=== PATIENT | female | born 1940 | race Caucasian/White ===

== ENCOUNTER 2018-08-10 11:20 | Emergency (ER) | payer MEDICARE ==
[~2018-08-10] VITALS: Ht 154.9 cm; Wt 81.6 kg
[~2018-08-10 11:20] MED LIST: ALBU2.5V8 INH; ALLO100T PO; ALPR0.254 PO; AMLO5TAB10 PO; ARMO150T4 PO; ASPI-482 PO; ASPI325T11 PO; AZIT250T6 PO; CLOP75TA PO; ERYT250T16 PO; FERR325T14 PO; FURO-68 PO; INSU100C4 SQ; INSU100I27 SQ; INSU100I30 SQ; INSU100V13 SQ; INSU100V31 SQ; INSU300I SQ; LEVO137T3 PO; LOSA25TA PO; METF500T16 PO; METO-269 PO; PRED-220 PO; SERT50TA PO; SIMV40TA3 PO; TOPI50TA38 PO; TRAM50TA PO
--- NOTE | 2018-08-10 13:29 | RAD ---
CT Abdomen and Pelvis without contrast History: Right flank pain for one week Technique: Noncontrast CT imaging was performed of the abdomen and pelvis. Multiplanar images are reviewed. Exposure: One or more of the following individualized dose reduction techniques were utilized for this examination: 1. Automated exposure control 2. Adjustment of the mA and/or kV according to patient size 3. Use of iterative reconstruction technique. Comparison: CT abdomen exam December 31, 2003 Findings: There are several small micronodules of the visualized left lower lobe near the lung base. There is no pleural fluid. Evaluation of the abdominal visceral organs is limited without intravenous contrast. There are hepatic and splenic granulomas. Otherwise no obvious focal abnormality is identified of the liver or spleen. Pancreas is atrophic. Gallbladder is present without obvious intraluminal abnormality by CT although difficult to exclude mild wall thickening on this exam such as posteriorly. There is no urolithiasis or hydronephrosis. There is incidental retroaortic left renal vein. There is no adrenal nodularity. Accurate evaluation of bowel is limited without oral contrast. Appendix is not clearly identified if still present, no significant pericecal inflammatory type change. There is mild sigmoid diverticulosis not associated with significant inflammatory type change. There is multilevel facet degenerative change, grade 1 anterior spondylolisthesis at L4-5. Impression: 1. There is no urolithiasis or hydronephrosis. Appendix is not clearly identified if still present, no significant pericecal inflammatory type change. There is mild colonic diverticulosis without convincing evidence of diverticulitis. It is difficult to entirely exclude mild gallbladder wall thickening more posteriorly on this exam although no obvious intraluminal abnormality of the gallbladder. 2. There are multiple micronodules of the visualized left lower lobe at the lung base more likely on a postinfectious or postinflammatory basis. Lungs are not fully evaluated. Electronically signed by: Get Moy MD (08/10/2018 1:26 PM) [facility]
[2018-08-10 13:33] LABS: BASO % 0 % (0-3); EOS # 0.3 x10^3/uL (0.0-0.7); EOS % 5 % (0-3); HEMATOCRIT 30.6 % (36.0-47.0); HEMOGLOBIN 9.5 g/dL (12.0-15.5); LYMPH # 1.7 x10^3/uL (1.0-4.8); LYMPH % 25 % (24-48); MEAN CORPUSCULAR HEMOGLOBIN 26 pg (25-35); MEAN CORPUSCULAR HGB CONC 31 g/dL (31-37); MEAN CORPUSCULAR VOLUME 82 fL (79-100); MONO # 0.6 x10^3/uL (0.0-1.1); MONO % 9 % (0-9); NEUT # 4.2 x10^3uL (1.8-7.7); NEUT % 61 % (31-73); PLATELET COUNT 174 x10^3/uL (140-400); RED BLOOD COUNT 3.74 x10^6/uL (3.50-5.40); WHITE BLOOD COUNT 6.9 x10^3/uL (4.0-11.0)
[2018-08-10 13:42] LABS: CALCIUM 8.5 mg/dL (8.5-10.1); CREATININE 1.7 mg/dL (0.6-1.0); GFR 29.1; POTASSIUM 4.8 mmol/L (3.5-5.1)
[2018-08-10 13:47] LABS: ALBUMIN/GLOBULIN RATIO 0.9 (1.0-1.7); TOTAL BILIRUBIN 0.2 mg/dL (0.2-1.0); TOTAL PROTEIN 6.3 g/dL (6.4-8.2)
--- NOTE | 2018-08-10 14:15 | PHYS DOC ---
Past Medical History Past Medical History: Anxiety, COPD, Diabetes-Type II, High Cholesterol, Hypertension, Hypothyroid, ME, Other Additional Past Medical Histor: gout, cataracts, stage 3 kidney disease, skin cancer Past Surgical History: Appendectomy, Hysterectomy, Other Additional Past Surgical Histo: cataracts, cardiac cath with stents Alcohol Use: None Drug Use: None Adult General Chief Complaint Chief Complaint: FLANK PAIN HPI HPI Patient is a 78 year old female presented to ER today for evaluation of right side lower back pain, right flank pain started about 7 days ago. Pain is worsened with any kind of flexion or extension of her back or walking. She denies any fever, no nausea vomiting. Patient denies any urinary symptom. Patient denies any chest pain, no trouble breathing. Patient denies any bowel or bladder incontinence. Review of Systems Review of Systems Constitutional: Denies fever or chills [] Eyes: Denies change in visual acuity, redness, or eye pain [] HENT: Denies nasal congestion or sore throat [] Respiratory: Denies cough or shortness of breath [] Cardiovascular: No additional information not addressed in HPI [] GI: POSITIVE FOR abdominal pain, NO nausea, vomiting, bloody stools or diarrhea [] : Denies dysuria or hematuria [] Musculoskeletal: Positive for back pain NO joint pain [] Integument: Denies rash or skin lesions [] Neurologic: Denies headache, focal weakness or sensory changes [] Endocrine: Denies polyuria or polydipsia [] All other systems were reviewed and found to be within normal limits, except as documented in this note. Current Medications Current Medications Current Medications Medications (Trade) Dose Ordered Sig/Mindy Start Time Stop Time Status Last Admin Dose Admin Fentanyl Citrate (Fentanyl 2ml Vial) 50 mcg 1X ONCE 08/10/18 15:30 08/10/18 15:31 DC 08/10/18 15:35 50 MCG Allergies Allergies Allergies Coded Allergies Type Severity Reaction Last Updated Verified Penicillins Allergy Intermediate hives 08/07/18 Yes Sulfa (Sulfonamide Antibiotics) Allergy Intermediate 08/07/18 Yes codeine Allergy Intermediate 08/07/18 Yes morphine Allergy Intermediate 08/07/18 Yes Physical Exam Physical Exam Constitutional: Well developed, well nourished, no acute distress, non-toxic appearance. [] HENT: Normocephalic, atraumatic, bilateral external ears normal, oropharynx moist, no oral exudates, nose normal. [] Eyes: PERRLA, EOMI, conjunctiva normal, no discharge. [] Neck: Normal range of motion, no tenderness, supple, no stridor. [] Cardiovascular:Heart rate regular rhythm, no murmur [] Lungs & Thorax: Bilateral breath sounds clear to auscultation [] Abdomen: Bowel sounds normal, soft, no tenderness, no masses, no pulsatile masses. [] Skin: Warm, dry, no erythema, no rash. [] Back: No tenderness, no CVA tenderness. [] Extremities: No tenderness, no cyanosis, no clubbing, ROM intact, no edema. [] Neurologic: Alert and oriented X 3, normal motor function, normal sensory function, no focal deficits noted. [] Psychologic: Affect normal, judgement normal, mood normal. [] Current Patient Data Vital Signs Vital Signs Date Time Temp Pulse Resp B/P (MAP) Pulse Ox O2 Delivery O2 Flow Rate FiO2 08/10/18 16:29 61 16 162/70 (100) 99 Room Air 08/10/18 11:26 98.3 98.3 Lab Values Laboratory Tests Test 08/10/18 13:25 08/10/18 15:20 White Blood Count 6.9 x10^3/uL (4.0-11.0) Red Blood Count 3.74 x10^6/uL (3.50-5.40) Hemoglobin 9.5 g/dL (12.0-15.5) L Hematocrit 30.6 % (36.0-47.0) L Mean Corpuscular Volume 82 fL (79-100) Mean Corpuscular Hemoglobin 26 pg (25-35) Mean Corpuscular Hemoglobin Concent 31 g/dL (31-37) Red Cell Distribution Width 16.0 % (11.5-14.5) H Platelet Count 174 x10^3/uL (140-400) Neutrophils (%) (Auto) 61 % (31-73) Lymphocytes (%) (Auto) 25 % (24-48) Monocytes (%) (Auto) 9 % (0-9) Eosinophils (%) (Auto) 5 % (0-3) H Basophils (%) (Auto) 0 % (0-3) Neutrophils # (Auto) 4.2 x10^3uL (1.8-7.7) Lymphocytes # (Auto) 1.7 x10^3/uL (1.0-4.8) Monocytes # (Auto) 0.6 x10^3/uL (0.0-1.1) Eosinophils # (Auto) 0.3 x10^3/uL (0.0-0.7) Basophils # (Auto) 0.0 x10^3/uL (0.0-0.2) Sodium Level 142 mmol/L (136-145) Potassium Level 4.8 mmol/L (3.5-5.1) Chloride Level 110 mmol/L (98-107) H Carbon Dioxide Level 23 mmol/L (21-32) Anion Gap 9 (6-14) Blood Urea Nitrogen 41 mg/dL (7-20) H Creatinine 1.7 mg/dL (0.6-1.0) H Estimated GFR (Cockcroft-Gault) 29.1 BUN/Creatinine Ratio 24 (6-20) H Glucose Level 133 mg/dL (70-99) H Calcium Level 8.5 mg/dL (8.5-10.1) Total Bilirubin 0.2 mg/dL (0.2-1.0) Aspartate Amino Transferase (AST) 17 U/L (15-37) Alanine Aminotransferase (ALT) 16 U/L (14-59) Alkaline Phosphatase 91 U/L (46-116) Total Protein 6.3 g/dL (6.4-8.2) L Albumin 3.0 g/dL (3.4-5.0) L Albumin/Globulin Ratio 0.9 (1.0-1.7) L Lipase 47 U/L (73-393) L Urine Collection Type Unknown Urine Color Yellow Urine Clarity Clear Urine pH 6.5 Urine Specific [place] 1.015 Urine Protein Negative mg/dL (NEG-TRACE) Urine Glucose (UA) Negative mg/dL (NEG) Urine Ketones (Stick) Negative mg/dL (NEG) Urine Blood Negative (NEG) Urine Nitrite Negative (NEG) Urine Bilirubin Negative (NEG) Urine Urobilinogen Dipstick 0.2 mg/dL (0.2 mg/dL) Urine Leukocyte Esterase Negative (NEG) Urine RBC Occ /HPF (0-2) Urine WBC Occ /HPF (0-4) Urine Squamous Epithelial Cells Few /LPF Urine Bacteria 0 /HPF (0-FEW) Laboratory Tests 08/10/18 13:25 Laboratory Tests 08/10/18 13:25 EKG EKG [] Radiology/Procedures Radiology/Procedures [][facility] [address] [place] [address] IMAGING REPORT Signed PATIENT: DIA HAILE ACCOUNT: [id number] : 1940 LOCATION: ER AGE: 78 SEX: F EXAM STATUS: REG ER ORD. PHYSICIAN: WILNER CRAIG DO REASON: right flank pain for a week PROCEDURE: CT ABDOMEN PELVIS WO CONTRAST CT Abdomen and Pelvis without contrast History: Right flank pain for one week Technique: Noncontrast CT imaging was performed of the abdomen and pelvis. Multiplanar images are reviewed. Exposure: One or more of the following individualized dose reduction techniques were utilized for this examination: 1. Automated exposure control 2. Adjustment of the mA and/or kV according to patient size 3. Use of iterative reconstruction technique. Comparison: CT abdomen exam December 31, 2003 Findings: There are several small micronodules of the visualized left lower lobe near the lung base. There is no pleural fluid. Evaluation of the abdominal visceral organs is limited without intravenous contrast. There are hepatic and splenic granulomas. Otherwise no obvious focal abnormality is identified of the liver or spleen. Pancreas is atrophic. Gallbladder is present without obvious intraluminal abnormality by CT although difficult to exclude mild wall thickening on this exam such as posteriorly. There is no urolithiasis or hydronephrosis. There is incidental retroaortic left renal vein. There is no adrenal nodularity. Accurate evaluation of bowel is limited without oral contrast. Appendix is not clearly identified if still present, no significant pericecal inflammatory type change. There is mild sigmoid diverticulosis not associated with significant inflammatory type change. There is multilevel facet degenerative change, grade 1 anterior spondylolisthesis at L4-5. Impression: 1. There is no urolithiasis or hydronephrosis. Appendix is not clearly identified if still present, no significant pericecal inflammatory type change. There is mild colonic diverticulosis without convincing evidence of diverticulitis. It is difficult to entirely exclude mild gallbladder wall thickening more posteriorly on this exam although no obvious intraluminal abnormality of the gallbladder. 2. There are multiple micronodules of the visualized left lower lobe at the lung base more likely on a postinfectious or postinflammatory basis. Lungs are not fully evaluated. Electronically signed by: Toya Anaya MD (08/10/2018 1:26 PM) [facility] DICTATED and SIGNED BY: TOYA ANAYA MD DATE: 08/10/18 1326 [facility] [address] [place] [address] IMAGING REPORT Signed PATIENT: DIA HAILE ACCOUNT: [id number] : 1940 LOCATION: ER AGE: 78 SEX: F EXAM STATUS: REG ER ORD. PHYSICIAN: WILNER CRAIG DO REASON: right upper quadrant abdominal pain PROCEDURE: ABDOMEN LTD ABDOMEN LTD History: Right upper quadrant pain Comparison: CT exam the same day Findings: Multiple sonographic images of the abdomen are submitted. There is no abnormality of the visualized pancreas. Gallbladder is present without intraluminal abnormality, wall thickening, pericholecystic fluid. Common bile duct is within normal limits about 0.4 cm. Hepatic echotexture is within normal limits, no focal hepatic lesion demonstrated. There is segmental visualization of the inferior vena cava. Right kidney measured 10.6 x 5.5 x 4.9 cm, no hydronephrosis. There is a small 1.5 x 1.5 x 1.4 cm hypoechoic lesion of the inferior right kidney, associated focus of thin calcification/milk of calcium. Impression: 1. There is inferior right renal cyst, associated minimal thin calcification or milk of calcium. No other abnormality is demonstrated. Electronically signed by: Toya Anaya MD (08/10/2018 2:34 PM) [facility] DICTATED and SIGNED BY: TOYA ANAYA MD DATE: 08/10/18 8697 Course & Med Decision Making Course & Med Decision Making Pertinent Labs and Imaging studies reviewed. (See chart for details) [] Dragon Disclaimer Dragon Disclaimer This electronic medical record was generated, in whole or in part, using a voice recognition dictation system. Departure Departure Impression: Primary Impression: Spondylisthesis Additional Impression: Back pain Disposition: 01 HOME, SELF-CARE Condition: STABLE Referrals: VIANEY HOLT MD (PCP) follow up with your doctor for further evaluation Patient Instructions: Back Pain, Adult, Spondylolisthesis with Rehab-SportsMed Problem Qualifiers WILNER CRAIG DO Aug 10, 2018 14:15
--- NOTE | 2018-08-10 14:38 | RAD ---
ABDOMEN LTD History: Right upper quadrant pain Comparison: CT exam the same day Findings: Multiple sonographic images of the abdomen are submitted. There is no abnormality of the visualized pancreas. Gallbladder is present without intraluminal abnormality, wall thickening, pericholecystic fluid. Common bile duct is within normal limits about 0.4 cm. Hepatic echotexture is within normal limits, no focal hepatic lesion demonstrated. There is segmental visualization of the inferior vena cava. Right kidney measured 10.6 x 5.5 x 4.9 cm, no hydronephrosis. There is a small 1.5 x 1.5 x 1.4 cm hypoechoic lesion of the inferior right kidney, associated focus of thin calcification/milk of calcium. Impression: 1. There is inferior right renal cyst, associated minimal thin calcification or milk of calcium. No other abnormality is demonstrated. Electronically signed by: Get Moy MD (08/10/2018 2:34 PM) [facility]
[2018-08-10] MEDS ORDERED: fentaNYL PF VIAL 100 MCG/2 ML VIAL IV ONE (15:30)
[2018-08-10 15:37] LABS: BILIRUBIN,URINE NEGATIVE (NEG); CLARITY,URINE CLEAR; COLOR,URINE YELLOW; NITRITE,URINE NEGATIVE (NEG); PH,URINE 6.5; PROTEIN,URINE NEGATIVE (NEG-TRACE); UROBILINOGEN,URINE 0.2 mg/dL (0.2 mg/dL)
[2018-08-10 15:45] LABS: BACTERIA,URINE 0 /HPF (0-FEW); RBC,URINE OCC /HPF (0-2); SQUAMOUS EPITHELIAL CELL,UR FEW /LPF; WBC,URINE OCC /HPF (0-4)
[2018-08-10 16:29] VITALS: BP 162/70
== END 2018-08-10 16:24 | disposition home or self-care (01) ==
LOC: ER 11:20
DX: N28.1 Cyst of kidney, acquired (principal); M43.16 Spondylolisthesis, lumbar region; R10.11 Right upper quadrant pain; K57.32 Diverticulitis of large intestine without perforation or abscess without bleeding; F41.9 Anxiety disorder, unspecified; E78.00 Pure hypercholesterolemia, unspecified; E03.9 Hypothyroidism, unspecified; E11.22 Type 2 diabetes mellitus with diabetic chronic kidney disease; I12.9 Hypertensive chronic kidney disease with stage 1 through stage 4 chronic kidney disease, or unspecified chronic kidney disease; N18.3 Chronic kidney disease, stage 3 (moderate); I25.2 Old myocardial infarction; J44.9 Chronic obstructive pulmonary disease, unspecified; Z88.0 Allergy status to penicillin; Z88.2 Allergy status to sulfonamides; Z88.5 Allergy status to narcotic agent
CPT/HCPCS: 36415; 74176; 76705; 80053; 81001; 83690; 85025; 96374; 99285; J3010

== ENCOUNTER → 2019-07-09 | Outpatient (CLI) | payer MEDICARE ==
[2019-06-18 13:13] VITALS: BP 190/84
[~2019-07-09] MED LIST changes: +HYDR-2769 PO; +LIDO700A21 TD; +REGADENOSON 0.4 MG/5 ML DISP.SYRIN. IV ONE; +SIMV40TA18 PO; -SIMV40TA3 PO; +SODI650T PO; +TIZA4TAB2 PO
--- NOTE | 2019-07-09 11:40 | RAD ---
MR#: [id number] Date of Study: 07/09/2019 Ordering Physician: ELIZABETH ESPINOZA, Referring Physician: PARTH STEIN Tech: RT Brandan (R) (N) APPROVED REPORT Test Type: Pharmacological Stress Nurse/Tech: Jody Myers RN Test Indications: heart palpitations, wearing a ZIO monitor Cardiac History: OR 2018 with 2 stents Medications: See Electronic Medical Record Medical History: See Electronic Medical Record Resting ECG: SR Resting Heart Rate: 65 bpm Resting Blood Pressure: 165/65mmHg Pretest Chest Pain: None Nurse/Tech Notes lungs CTA, S1S2 Consent: The procedure was explained to the patient in lay terms. Informed consent was witnessed. Ji eout was entered into [employer]. History and Stress Test performed by Jody Myers RN Pharm. Details Pharmacologic stress testing was performed using 0.4mg per 5ml of regadenoson given intravenously ove r 7-10 seconds. Stress Symptoms chest pressure that resolved by termination of test POST EXERCISE Reason for Termination: Infusion complete Max HR: 90 bpm Max Blood Pressure: 174/59mmHg Blood Pressure response to exercise: Normal blood pressure response during stress. Heart Rate response to exercise: normal response Chest Pain: No. Arrhythmia: No. ST Change: No. INTERPRETATION Stress EKG Conclusion: The baseline EKG shows a sinus rhythm with a small septal Q wave and mild nons pecific ST-T wave changes. The stress EKG shows no significant changes from baseline. No EKG evidence of stressed induced ischemia. Imaging Protocol IMAGE PROTOCOL: Rest Tc-99m/stress Tc-99m 1 day Rest: Stress: Viability: Radiopharm.Tc99m [id number] Sestamibi Qztm63nNo 30mCi Duration 13min. 13min. Img Date 07/09/2019 07/09/2019 Inj-Img [id number]. 60min. Rest Admin Site:IV - Right AntecubitalAdministrator:JASON Peralta, ARRT (R)(N) Stress Admin Site: IV - Right AntecubitalAdministrator: RT Brandan (R)(N) STRESS DATA End Diast. Vol.76.0mlLVEDV index BSA42.0ml End Syst. Vol.16.0mlLVESV index BSA9.0ml Myocardial Ydfv379.0gEject. Ahfdhgak35.0% Stress Scores Regional WT0.00Summed WT1.00 Regional WM0.00Summed WM0.00 LV Perfusion The stress scans show no significant defects. The rest scans show no significant defects. Nuclear imaging shows no reversible ischemia or infarct. Wall Motion Left ventricular systolic function is normal with no regional wall motion abnormalities and an ejecti on fraction of greater than 70%. LV Perf. Quant 17 Seg. SSS0.00 17 Seg. SRS1.00 17 Seg. SDS0.00 Stress Defect Extent (% LAD)0.00Rest Defect Extent (% LAD)0.00Rev. Defect Extent (% LAD)0.00 Stress Defect Extent (% LCX) 0.00Rest Defect Extent (% LCX)0.00Rev. Defect Extent (% LCX)0.00 Stress Defect Extent (% RCA)0.00Rest Defect Extent (% RCA)0.00Rev. Defect Extent (% RCA)0.00 Stress Defect Extent (% PARAG)0.00Rest Defect Extent (% PARAG)0.00Rev. Defect Extent (% PARAG)0.00 Conclusion 1. No EKG evidence of stressed induced ischemia. 2. Nuclear imaging shows no reversible ischemia or infarct. 3. Normal left ventricular systolic function with an ejection fraction of greater than 70%. 4. Low risk Lexiscan nuclear stress test. Signed by : Elizabeth Espinoza MD Electronically Approved : 07/09/2019 11:40:14
== END ==
LOC: NM 08:07
PROVIDERS: ATTEND Internal Medicine Cardiovascular Disease
DX: I21.02 ST elevation (STEMI) myocardial infarction involving left anterior descending coronary artery (principal)
CPT/HCPCS: 78452; 93017; A9500; J2785

== ENCOUNTER 2021-01-11 14:48 | Inpatient (IN) | payer MEDICARE ==
[~2021-01-11] VITALS: Ht 154.9 cm; Wt 86.4 kg
[~2021-01-11 14:48] MED LIST changes: +AMLO-186 PO; -AMLO5TAB10 PO; -ERYT250T16 PO; +ERYT250T84 PO; +FURO20TA3 PO; +INSU100V35 SQ; +INSU100V8 SQ; +OXYC1TAB22 PO; -REGADENOSON 0.4 MG/5 ML DISP.SYRIN. IV ONE
[2021-01-11 16:00] LABS: BASO # 0.1 x10^3/uL (0.0-0.2); BASO % 1 % (0-3); EOS # 0.2 x10^3/uL (0.0-0.7); EOS % 1 % (0-3); HEMOGLOBIN 9.7 g/dL (12.0-15.5); LYMPH # 1.4 x10^3/uL (1.0-4.8); LYMPH % 10 % (24-48); MEAN CORPUSCULAR HEMOGLOBIN 27 pg (25-35); MEAN CORPUSCULAR HGB CONC 32 g/dL (31-37); MEAN CORPUSCULAR VOLUME 83 fL (79-100); MONO % 7 % (0-9); NEUT # 11.8 x10^3/uL (1.8-7.7); NEUT % 82 % (31-73); PLATELET COUNT 186 x10^3/uL (140-400); RED BLOOD COUNT 3.63 x10^6/uL (3.50-5.40); RED CELL DISTRIBUTION WIDTH 15.2 % (11.5-14.5); WHITE BLOOD COUNT 14.5 x10^3/uL (4.0-11.0)
--- NOTE | 2021-01-11 16:05 | RAD ---
Single AP view of the chest. Comparison: 03/04/2020. Indication: Chest pain Findings: Interval reverse left humeral arthroplasty. The heart is enlarged but stable. There is no pneumothor ax or effusion. No air space or interstitial disease. Impression: 1. No acute cardiopulmonary process. Electronically signed by: Doc Ellis MD (01/11/2021 4:03 PM) [facility]
[2021-01-11 16:16] LABS: CALCIUM 8.8 mg/dL (8.5-10.1); CREATININE 2.3 mg/dL (0.6-1.0); GFR 20.5
[2021-01-11 16:23] LABS: ALBUMIN/GLOBULIN RATIO 0.8 (1.0-1.7); MAGNESIUM 1.5 mg/dL (1.8-2.4); TOTAL BILIRUBIN 0.3 mg/dL (0.2-1.0); TOTAL PROTEIN 6.8 g/dL (6.4-8.2)
--- NOTE | 2021-01-11 16:34 | PHYS DOC ---
Past Medical History Past Medical History: Anemia, Anxiety, COPD, Diabetes-Type II, High Cholesterol, Hypertension, Hypothyroid, SD, Other Additional Past Medical Histor: gout,cataracts,stage 3 kidney disease,skin cancer Past Surgical History: Appendectomy, Hysterectomy, Other Additional Past Surgical Histo: cataracts,cardiac cath with stents,SHOULDER REPLACEMENT Smoking Status: Former Smoker Alcohol Use: None Drug Use: None General Adult EDM: Chief Complaint: CHEST PAIN HPI: HPI: 80-year-old female past medical history of diabetes, hypertension, hy perlipidemia, CAD, hypothyroidism, CKDIII, former tobacco use and multiple other comorbidities, presents to the ED with biological daughter, (patient consents to his/her/their knowledge and involvement in pts' medical care), complaints of midsternal chest pain shortness of breath for the past 2 days. Reports associated exertional dyspnea and worsening leg swelling over the past week. Patient states around 1 PM today symptoms started and are intermittent, described as midsternal and pain on both sides of the stomach with associated nausea when the pain becomes severe. States this is not similar to her prior heart attack where the discomfort was under her left armpit. Was seen by Dr. Cuadra who was concerned for possible fluid in the lungs or around the heart, pt has a pending stress test and echocardiogram. Reports her blood pressure is normally 160/76. Has not taken her blood pressure medications today. Denies any history of COVID or cocaine abuse. Was vaccinated for Covid in July 2020. Review of Systems: Review of Systems: Constitutional: Denies fever or chills. [] Eyes: Denies change in visual acuity. [] HENT: Denies nasal congestion or sore throat. [] Respiratory: Denies cough or shortness of breath. [] Cardiovascular: Denies syncope or edema. [] GI: Denies abdominal pain, vomiting, bloody stools or diarrhea. [] : Denies dysuria or hematuria Musculoskeletal: Denies back pain or joint pain. [] Integument: Denies rash or diaphoresis Neurologic: Denies headache, focal weakness or sensory changes. [] Endocrine: Denies polyuria or polydipsia. [] Lymphatic: Denies swollen glands. [] Psychiatric: Denies depression or anxiety. [] Heart Score: C/O Chest Pain: Yes HEART Score for Chest Pain: HEART Score for Chest Pain Response (Comments) Value History Slighlty/Non-Suspicious 0 ECG Normal 0 Age > 65 2 Risk Factors >3 Risk Factors or Hx CAD 2 Troponin < Normal Limit 0 Total 4 Risk Factors: Risk Factors: DM, Current or recent (<one month) smoker, HTN, HLP, family history of CAD, obesity. Risk Scores: Score 0 - 3: 2.5% MACE over next 6 weeks - Discharge Home Score 4 - 6: 20.3% MACE over next 6 weeks - Admit for Clinical Observation Score 7 - 10: 72.7% MACE over next 6 weeks - Early Invasive Strategies Allergies: Allergies: Allergies Coded Allergies Type Severity Reaction Last Updated Verified Penicillins Allergy Intermediate hives 01/11/21 Yes Sulfa (Sulfonamide Antibiotics) Allergy Intermediate 01/11/21 Yes codeine Adverse Reaction Intermediate ITCH 01/11/21 Yes morphine Adverse Reaction Intermediate ITCH 01/11/21 Yes Physical Exam: PE: Constitutional: Well developed, well nourished, no acute distress, non-toxic appearance. HENT: Normocephalic, atraumatic, Eyes: EOMI, conjunctiva normal, no discharge. Neck: Normal range of motion, supple, no JVD Cardiovascular: S1/2 present, regular rhythm Lungs & Thorax: Speaking in full sentences, bilateral equal chest rise, no tachypnea or increased work of breathing Abdomen: soft, no tenderness, Skin: Warm, dry, no erythema, no rash. [] Back: No tenderness, no CVA tenderness. [] Extremities: No tenderness, no cyanosis, equal lower extremity edema Neurologic: Alert and oriented X 3, normal motor function, normal sensory function, no focal deficits noted. [] Psychologic: Affect normal, judgement normal, mood normal. [] Current Patient Data: Labs: Laboratory Tests Test 01/11/21 15:40 White Blood Count 14.5 x10^3/uL (4.0-11.0) H Red Blood Count 3.63 x10^6/uL (3.50-5.40) Hemoglobin 9.7 g/dL (12.0-15.5) L Hematocrit 30.0 % (36.0-47.0) L Mean Corpuscular Volume 83 fL (79-100) Mean Corpuscular Hemoglobin 27 pg (25-35) Mean Corpuscular Hemoglobin Concent 32 g/dL (31-37) Red Cell Distribution Width 15.2 % (11.5-14.5) H Platelet Count 186 x10^3/uL (140-400) Neutrophils (%) (Auto) 82 % (31-73) H Lymphocytes (%) (Auto) 10 % (24-48) L Monocytes (%) (Auto) 7 % (0-9) Eosinophils (%) (Auto) 1 % (0-3) Basophils (%) (Auto) 1 % (0-3) Neutrophils # (Auto) 11.8 x10^3/uL (1.8-7.7) H Lymphocytes # (Auto) 1.4 x10^3/uL (1.0-4.8) Monocytes # (Auto) 1.0 x10^3/uL (0.0-1.1) Eosinophils # (Auto) 0.2 x10^3/uL (0.0-0.7) Basophils # (Auto) 0.1 x10^3/uL (0.0-0.2) Sodium Level 140 mmol/L (136-145) Potassium Level 5.0 mmol/L (3.5-5.1) Chloride Level 108 mmol/L (98-107) H Carbon Dioxide Level 20 mmol/L (21-32) L Anion Gap 12 (6-14) Blood Urea Nitrogen 52 mg/dL (7-20) H Creatinine 2.3 mg/dL (0.6-1.0) H Estimated GFR (Cockcroft-Gault) 20.5 BUN/Creatinine Ratio 23 (6-20) H Glucose Level 188 mg/dL (70-99) H Calcium Level 8.8 mg/dL (8.5-10.1) Magnesium Level 1.5 mg/dL (1.8-2.4) L Total Bilirubin 0.3 mg/dL (0.2-1.0) Aspartate Amino Transferase (AST) 16 U/L (15-37) Alanine Aminotransferase (ALT) 30 U/L (14-59) Alkaline Phosphatase 140 U/L (46-116) H Troponin I Quantitative < 0.017 ng/mL (0.000-0.055) OW-Ipd-N-Type Natriuretic Peptide 2107 pg/mL (0-449) H Total Protein 6.8 g/dL (6.4-8.2) Albumin 3.0 g/dL (3.4-5.0) L Albumin/Globulin Ratio 0.8 (1.0-1.7) L Lipase 32 U/L (73-393) L Laboratory Tests 01/11/21 15:40 Laboratory Tests 01/11/21 15:40 Vital Signs: Vital Signs Date Time Temp Pulse Resp B/P (MAP) Pulse Ox O2 Delivery O2 Flow Rate FiO2 01/11/21 15:11 99.1 76 20 224/91 (135) 99 Room Air 99.1 EKG: EKG: Sinus rhythm 77 bpm, no axis deviation, normal intervals, T wave inversion V2, no ST ovation or ST depression Sinus rhythm 69 bpm, no axis deviation, normal intervals, no ST elevation or ST depression Radiology/Procedures: Radiology/Procedures: IMAGING REPORT Signed PATIENT: DIA HAILE JACCOUNT: [id number] : 1940 LOCATION: ER AGE: 80 SEX: F EXAM STATUS: PRE ER ORD. PHYSICIAN: RICK SANDERS DO REASON: cp PROCEDURE: PORTABLE CHEST 1V Single AP view of the chest. Comparison: 03/04/2020. Indication: Chest pain Findings: Interval reverse left humeral arthroplasty. The heart is enlarged but stable. There is no pneumothorax or effusion. No air space or interstitial disease. Impression: 1. No acute cardiopulmonary process. Electronically signed by: Doc Ellis MD (01/11/2021 4:03 PM) [facility] DICTATED and SIGNED BY: DOC ELLIS MD DATE: 01/11/21 [id number] 0 Course & Med Decision Making: Course & Med Decision Making Pertinent Labs and Imaging studies reviewed. (See chart for details) Concern for moderate risk chest pain in the setting of uncontrolled hypertension and acute on chronic kidney disease. Blood pressure improved in emergency department. Will admit for further medical management with cardiology consultation. Patient stable at time of admission and agrees with this plan. I have spoken with the patient and/or caregivers. I have explained the patient's condition, diagnosis and treatment plan based on the information available to me at this time. I have answered the patient's and/or caregivers questions and answered any concerns. The patient and/or caregivers have as good an understanding of the patient's diagnosis, condition and treatment plan as can be expected at this point. The patient has been stabilized within the capability of the emergency department. The patient will be transported for further care and management or will be moved to an observation or inpatient service. I have communicated with the staff or medical practitioner taking over this patient's care. Dragon Disclaimer: Dragon Disclaimer: This electronic medical record was generated, in whole or in part, using a voice recognition dictation system. Departure Departure Impression: Primary Impression: Chest pain Additional Impressions: Acute kidney injury superimposed on chronic kidney disease Uncontrolled hypertension Disposition: ADMITTED INPATIENT Admitting Physician: Jossie Holt Condition: STABLE Referrals: JOSSIE HOLT MD (PCP) RICK BERNAL DO Jan 11, 2021 16:34
[2021-01-11] MEDS ORDERED: MAGNESIUM SULFATE 2GM 50 ML IV ONE (16:45)
[2021-01-11 18:02] LABS: BILIRUBIN,URINE NEGATIVE (NEG); CLARITY,URINE CLEAR; COLOR,URINE YELLOW; NITRITE,URINE NEGATIVE (NEG); PH,URINE 6.5 (<5.0-8.0); PROTEIN,URINE >=300 mg/dL (NEG-TRACE); UROBILINOGEN,URINE 0.2 mg/dL (0.2 mg/dL)
--- NOTE | 2021-01-11 18:03 | EKG ---
[facility] [address] [place] [address] Test Date: 2021-01-10 Test Time: 08:57:13 Pat Name: DIA HAILE Department: Room: Gender: F Phlebotomy Specialist: : 1940 Requested By: RICK SANDERS Order Number: [id number] Reading MD: Measurements Intervals [place] Rate: 60 P: 39 SD: 158 QRS: 4 QRSD: 80 T: 20 QT: 400 QTc: 404 Interpretive Statements SINUS RHYTHM ATRIAL PREMATURE COMPLEX(ES) OTHERWISE NORMAL ECG RI6.02 No previous ECG available for comparison
[2021-01-11 18:06] LABS: RBC,URINE OCC /HPF (0-2); WBC,URINE OCC /HPF (0-4)
[2021-01-11 18:07] LABS: BACTERIA,URINE 0 /HPF (0-FEW)
[2021-01-11 18:08] LABS: BARBITURATES NEG (NEG); BENZODIAZEPINES NEG (NEG); CANNABINOIDS NEG (NEG); COCAINE NEG (NEG); METHADONE NEG (NEG); OPIATES NEG (NEG); PHENCYCLIDINE NEG (NEG)
--- NOTE | 2021-01-11 18:08 | EKG ---
[facility] [address] [place] [address] Test Date: 2021-01-11 Test Time: 15:17:59 Pat Name: DIA HAILE Department: Room: Gender: F [employer]: : 1940 Requested By: RICK SANDERS Order Number: [id number] Reading MD: Measurements Intervals [place] Rate: 77 P: 0 SC: 182 QRS: 36 QRSD: 60 T: 67 QT: 356 QTc: 405 Interpretive Statements SINUS RHYTHM QRS(T) CONTOUR ABNORMALITY CONSISTENT WITH ANTEROSEPTAL INFARCT PROBABLY OLD ABNORMAL ECG RI6.02 No previous ECG available for comparison
--- NOTE | 2021-01-11 18:09 | EKG ---
[facility] [address] [place] [address] Test Date: 2021-01-11 Test Time: 16:48:58 Pat Name: DIA HAILE Department: Room: Gender: F Chocolate Dipper: : 1940 Requested By: RICK SANDERS Order Number: [id number] Reading MD: Measurements Intervals [place] Rate: 69 P: 0 UT: 186 QRS: 22 QRSD: 62 T: 51 QT: 370 QTc: 398 Interpretive Statements SINUS RHYTHM NO SPECIFIC ECG ABNORMALITIES RI6.02 Compared to ECG 01/11/2021 15:17:59 Myocardial infarct finding no longer present
[2021-01-11 18:10] LABS: AMPHETAMINE/METHAMPHETAMINE NEG (NEG)
[2021-01-11] MEDS ORDERED: NITROGLYCERIN SUBLINGUAL 0.4 MG BOTTLE OF 25. SL PRN (20:15)
[2021-01-11 23:00] VITALS: BP 185/62
[2021-01-11] MEDS ORDERED: INSU100V13 SQ (23:06)
[2021-01-11] MEDS ORDERED: ATOR40TA59 PO (23:06)
[2021-01-11] MEDS ORDERED: TRAM50TA PO (23:06)
[2021-01-11] MEDS ORDERED: CHOL10004 PO (23:06)
[2021-01-11] MEDS ORDERED: LEVO200T5 PO (23:06)
[2021-01-11] MEDS ORDERED: ALPR0.254 PO (23:06)
[2021-01-11] MEDS ORDERED: AMLO-186 PO (23:06)
[2021-01-11] MEDS ORDERED: VIT1CAPS12 PO (23:06)
[2021-01-11] MEDS ORDERED: SERT-268 PO (23:06)
[2021-01-11] MEDS ORDERED: FURO20TA3 PO (23:06)
[2021-01-11] MEDS ORDERED: hydrALAZINE 20 MG/ML VIAL. IVP PRN (23:15)
[2021-01-11] MEDS ORDERED: INSULIN LISPRO 300 UNITS/3 ML VIAL. SQ ONE (23:30)
[2021-01-11] MEDS ORDERED: DEXTROSE 50% 25 GM / 50ML DISP.SYRIN. IV PRN (23:30)
[2021-01-11] MEDS: SODIUM BICARBONATE 650 MG TABLET. PO SCH (23:41)
[2021-01-11] MEDS: MULTIVITAMIN I-VITE TABLET. PO SCH (23:41)
[2021-01-11] MEDS: ALPRAZolam 0.25 MG TABLET PO SCH (23:41)
[2021-01-11] MEDS: TOPIRAMATE 25 MG TABLET. PO SCH (23:42)
[2021-01-11] MEDS: ATORVASTATIN CALCIUM 40 MG TABLET. PO SCH (23:42)
[2021-01-11] MEDS: INSULIN GLARGINE SYRINGE. SQ SCH (23:47)
[2021-01-12 02:48] VITALS: BP 176/68
[2021-01-12] MEDS: traMADol 50 MG TABLET PO PRN ×2 (06:26→20:46)
[2021-01-12] MEDS: LEVOTHYROXINE 100 MCG TABLET PO SCH (06:26)
[2021-01-12 07:00] VITALS: BP 194/69
[2021-01-12] MEDS: INSULIN LISPRO 300 UNITS/3 ML VIAL. SQ SCH ×7 (08:00→20:42)
[2021-01-12] MEDS: SERTRALINE 50 MG TABLET. PO SCH (08:43)
[2021-01-12] MEDS: ALPRAZolam 0.25 MG TABLET PO SCH ×2 (08:43→20:38)
[2021-01-12] MEDS: ASPIRIN ENTERIC COATED 325 MG TABLET.DR. PO SCH (08:43)
[2021-01-12] MEDS: TOPIRAMATE 25 MG TABLET. PO SCH ×2 (08:43→20:38)
[2021-01-12] MEDS: METOPROLOL SUCC 24HR ER 50 MG TAB.ER.24H. PO SCH (08:44)
[2021-01-12] MEDS: LOSARTAN POTASSIUM 25 MG TABLET. PO SCH (08:44)
[2021-01-12] MEDS: SODIUM BICARBONATE 650 MG TABLET. PO SCH ×3 (08:45→20:38)
[2021-01-12] MEDS: CHOLECALCIFEROL (VITAMIN D3) 1,000 UNIT TABLET PO SCH (08:45)
[2021-01-12] MEDS: ALLOPURINOL 100 MG TABLET. PO SCH (08:45)
[2021-01-12] MEDS: MULTIVITAMIN I-VITE TABLET. PO SCH ×2 (08:45→20:38)
[2021-01-12 08:53] LABS: CALCIUM 8.5 mg/dL (8.5-10.1); CREATININE 2.2 mg/dL (0.6-1.0); GFR 21.5
[2021-01-12 08:55] LABS: POTASSIUM 5.2 mmol/L (3.5-5.1)
[2021-01-12 09:02] LABS: BASO # 0.1 x10^3/uL (0.0-0.2); BASO % 1 % (0-3); EOS # 0.2 x10^3/uL (0.0-0.7); EOS % 1 % (0-3); HEMATOCRIT 28.3 % (36.0-47.0); HEMOGLOBIN 8.9 g/dL (12.0-15.5); LYMPH # 1.4 x10^3/uL (1.0-4.8); LYMPH % 12 % (24-48); MEAN CORPUSCULAR HEMOGLOBIN 27 pg (25-35); MEAN CORPUSCULAR HGB CONC 32 g/dL (31-37); MEAN CORPUSCULAR VOLUME 84 fL (79-100); MONO # 0.9 x10^3/uL (0.0-1.1); MONO % 7 % (0-9); NEUT # 9.7 x10^3/uL (1.8-7.7); NEUT % 80 % (31-73); PLATELET COUNT 171 x10^3/uL (140-400); RED BLOOD COUNT 3.37 x10^6/uL (3.50-5.40); RED CELL DISTRIBUTION WIDTH 15.6 % (11.5-14.5); WHITE BLOOD COUNT 12.2 x10^3/uL (4.0-11.0)
--- NOTE | 2021-01-12 09:28 | PDOC ---
Provider Note Date of Service: DATE: 01/12/21 TIME: 09:27 Provider Note Pt seen.H&P dictated.#[id number] Justifications for Admission Other Justification VIANEY HOLT MD Jan 12, 2021 09:28
[2021-01-12 10:00] LABS: AMYLASE 28 U/L (25-115); LIPASE 40 U/L (73-393)
[2021-01-12] MEDS ORDERED: IOHEXOL 240 MG/ML 50ML VIAL. IV ONE (10:30)
--- NOTE | 2021-01-12 10:33 | PDOC2 ---
CARDIAC CONSULT DATE OF CONSULT Date of Consult DATE: 01/12/21 TIME: 10:18 REASON FOR CONSULT Reason for Consult: Chest pain REFERRING PHYSICIAN Referring Physician: [facility] SOURCE Source: Chart review, Patient HISTORY OF PRESENT ILLNESS HISTORY OF PRESENT ILLNESS This is a pleasant 80 yo female admitted for complains of abdominal pain and chest pain. Her chest pain described it as sharp midsternal but more so to her abdomen to which these are reproducible with palpation. She also has been having SOA but non currently and clinically no CHF. She does have COPD and has quit smoking remotely. She does have some occasional palpitations. No fever or cough. Her pain is also reproducible with deep breathing. No changes in her medications and no prior falls or injury. No diaphoresis nor any jaw or arm heaviness. She is covid-19 vaccinated. PAST MEDICAL HISTORY Past Medical History Cardiovascular: CAD, HTN, DE, Hyperlipidemia Pulmonary: COPD, Other ([place]) CENTRAL NERVOUS SYSTEM: Other (No pertinent history) GI: GERD Heme/Onc: Anemia NOS Hepatobiliary: No pertinent hx Psych: Anxiety Musculoskeletal: Osteoarthritis Rheumatologic: No pertinent hx Infectious disease: No pertinent hx ENT: Other (cataract) Renal/: Chronic renal insuff (CKD3) Endocrine: Diabetes (2), Hypothyroidism Dermatology: Other (skin CA) PAST SURGICAL HISTORY Past Surgical History Appendectomy, Hysterectomy, Other (PCI/stents to LAD/LCx; nasal skin CA removal), L rTSA FAMILY HISTORY Family History: Diabetes SOCIAL HISTORY Smoke: Quit ALCOHOL: none Drugs: None Lives: with Family CURRENT MEDICATIONS CURRENT MEDICATIONS Current Medications Medications (Trade) Dose Ordered Sig/Mindy Route PRN Reason Start Time Stop Time Status Last Admin Dose Admin Magnesium Sulfate 50 ml @ 25 mls/hr 1X ONCE IV 01/11/21 16:45 01/11/21 18:44 DC 01/11/21 16:50 Nitroglycerin (Nitrostat) 0.4 mg PRN Q5MIN PRN SL CHEST PAIN 01/11/21 20:15 01/11/21 20:15 Allopurinol (Zyloprim) 100 mg DAILY PO 01/12/21 09:00 01/12/21 08:45 Alprazolam (Xanax) 0.25 mg BID PO 01/11/21 23:30 01/12/21 08:43 Amlodipine Besylate (Norvasc) 5 mg DAILY PO 01/12/21 09:00 01/12/21 08:43 Aspirin (Ecotrin) 325 mg DAILYWBKFT PO 01/12/21 08:00 01/12/21 08:43 Atorvastatin Calcium (Lipitor) 40 mg HS PO 01/11/21 23:30 01/11/21 23:42 Vitamin D (Vitamin D3) 1,000 unit DAILY PO 01/12/21 09:00 01/12/21 08:45 Losartan Potassium (Cozaar) 25 mg DAILY PO 01/12/21 09:00 01/12/21 08:44 Sodium Bicarbonate (Sodium Bicarbonate) 650 mg TID PO 01/11/21 23:30 01/12/21 08:45 Tramadol HCl (Ultram) 50 mg PRN Q6HRS PRN PO PAIN MILD 01/11/21 23:15 01/12/21 06:26 Insulin Glargine (Lantus Syringe) 30 unit HS SQ 01/11/21 23:30 01/11/21 23:47 Levothyroxine Sodium (Synthroid) 200 mcg DAILY06 PO 01/12/21 06:00 01/12/21 06:26 Metoprolol Succinate (Toprol Xl) 50 mg DAILY PO 01/12/21 09:00 01/12/21 08:44 Sertraline HCl (Zoloft) 100 mg DAILY PO 01/12/21 09:00 01/12/21 08:43 Topiramate (Topamax) 50 mg BID PO 01/11/21 23:30 01/12/21 08:43 Multivitamins/ Minerals (I-Vince) 1 tab BID PO 01/11/21 23:30 01/12/21 08:45 Insulin Human Lispro (HumaLOG) 8 units 1X ONCE SQ 01/11/21 23:30 01/11/21 23:31 DC 01/11/21 23:48 ALLERGIES ALLERGIES: Coded Allergies: Penicillins (Verified Allergy, Intermediate, hives, 01/11/21) Sulfa (Sulfonamide Antibiotics) (Verified Allergy, Intermediate, 01/11/21) codeine (Verified Adverse Reaction, Intermediate, ITCH, 01/11/21) morphine (Verified Adverse Reaction, Intermediate, ITCH, 01/11/21) ROS Review of System 14 point ROS evaluated with pertinent positives noted per HPI PHYSICAL EXAM General: Alert, Oriented X3, Cooperative, No acute distress HEENT: Atraumatic, Mucous membr. moist/pink Lungs: Clear to auscultation, Normal air movement Heart: Regular rate (SR), Normal S1, Normal S2, No murmurs Abdomen: Soft, Other (tender with palpation) Extremities: No cyanosis, No edema Skin: No breakdown, No significant lesion Neuro: Normal speech, Sensation intact Psych/Mental Status: Mental status NL, Mood NL MUSCULOSKELETAL: Osteoarthritic changes both hands VITALS/I&O VITALS/I&O: Vital Signs Date Time Temp Pulse Resp B/P (MAP) Pulse Ox O2 Delivery O2 Flow Rate FiO2 01/12/21 08:44 87 194/69 01/12/21 07:00 98.4 16 98 Room Air 98.4 I & O 01/11/21 01/11/21 01/12/21 15:00 23:00 07:00 Intake Total 50 ml 100 ml Output Total 300 ml Balance 50 ml -200 ml LABS Lab: Laboratory Tests Test 01/11/21 15:40 01/11/21 17:44 01/11/21 17:50 01/11/21 20:00 White Blood Count 14.5 x10^3/uL (4.0-11.0) H Red Blood Count 3.63 x10^6/uL (3.50-5.40) Hemoglobin 9.7 g/dL (12.0-15.5) L Hematocrit 30.0 % (36.0-47.0) L Mean Corpuscular Volume 83 fL (79-100) Mean Corpuscular Hemoglobin 27 pg (25-35) Mean Corpuscular Hemoglobin Concent 32 g/dL (31-37) Red Cell Distribution Width 15.2 % (11.5-14.5) H Platelet Count 186 x10^3/uL (140-400) Neutrophils (%) (Auto) 82 % (31-73) H Lymphocytes (%) (Auto) 10 % (24-48) L Monocytes (%) (Auto) 7 % (0-9) Eosinophils (%) (Auto) 1 % (0-3) Basophils (%) (Auto) 1 % (0-3) Neutrophils # (Auto) 11.8 x10^3/uL (1.8-7.7) H Lymphocytes # (Auto) 1.4 x10^3/uL (1.0-4.8) Monocytes # (Auto) 1.0 x10^3/uL (0.0-1.1) Eosinophils # (Auto) 0.2 x10^3/uL (0.0-0.7) Basophils # (Auto) 0.1 x10^3/uL (0.0-0.2) Sodium Level 140 mmol/L (136-145) Potassium Level 5.0 mmol/L (3.5-5.1) Chloride Level 108 mmol/L (98-107) H Carbon Dioxide Level 20 mmol/L (21-32) L Anion Gap 12 (6-14) Blood Urea Nitrogen 52 mg/dL (7-20) H Creatinine 2.3 mg/dL (0.6-1.0) H Estimated GFR (Cockcroft-Gault) 20.5 BUN/Creatinine Ratio 23 (6-20) H Glucose Level 188 mg/dL (70-99) H Calcium Level 8.8 mg/dL (8.5-10.1) Magnesium Level 1.5 mg/dL (1.8-2.4) L Total Bilirubin 0.3 mg/dL (0.2-1.0) Aspartate Amino Transferase (AST) 16 U/L (15-37) Alanine Aminotransferase (ALT) 30 U/L (14-59) Alkaline Phosphatase 140 U/L (46-116) H Troponin I Quantitative < 0.017 ng/mL (0.000-0.055) < 0.017 ng/mL (0.000-0.055) VN-Vlh-M-Type Natriuretic Peptide 2107 pg/mL (0-449) H Total Protein 6.8 g/dL (6.4-8.2) Albumin 3.0 g/dL (3.4-5.0) L Albumin/Globulin Ratio 0.8 (1.0-1.7) L Lipase 32 U/L (73-393) L SARS-CoV-2 RNA (VIVIAN) Negative (Negative) SARS-CoV-2 Antigen (Rapid) Negative (NEGATIVE) Urine Collection Type Unknown Urine Color Yellow Urine Clarity Clear Urine pH 6.5 (<5.0-8.0) Urine Specific [place] 1.015 (1.000-1.030) Urine Protein >=300 mg/dL (NEG-TRACE) Urine Glucose (UA) Negative mg/dL (NEG) Urine Ketones (Stick) Negative mg/dL (NEG) Urine Blood Negative (NEG) Urine Nitrite Negative (NEG) Urine Bilirubin Negative (NEG) Urine Urobilinogen Dipstick 0.2 mg/dL (0.2 mg/dL) Urine Leukocyte Esterase Negative (NEG) Urine RBC Occ /HPF (0-2) Urine WBC Occ /HPF (0-4) Urine Squamous Epithelial Cells Few /LPF Urine Bacteria 0 /HPF (0-FEW) Urine Opiates Screen Neg (NEG) Urine Methadone Screen Neg (NEG) Urine Barbiturates Neg (NEG) Urine Phencyclidine Screen Neg (NEG) Urine Amphetamine/Methamphetamine Neg (NEG) Urine Benzodiazepines Screen Neg (NEG) Urine Cocaine Screen Neg (NEG) Urine Cannabinoids Screen Neg (NEG) Urine Ethyl Alcohol Neg (NEG) Test 01/11/21 22:51 01/12/21 03:30 01/12/21 07:09 Glucose (Fingerstick) 402 mg/dL (70-99) H 191 mg/dL (70-99) H White Blood Count 12.2 x10^3/uL (4.0-11.0) H Red Blood Count 3.37 x10^6/uL (3.50-5.40) L Hemoglobin 8.9 g/dL (12.0-15.5) L Hematocrit 28.3 % (36.0-47.0) L Mean Corpuscular Volume 84 fL (79-100) Mean Corpuscular Hemoglobin 27 pg (25-35) Mean Corpuscular Hemoglobin Concent 32 g/dL (31-37) Red Cell Distribution Width 15.6 % (11.5-14.5) H Platelet Count 171 x10^3/uL (140-400) Neutrophils (%) (Auto) 80 % (31-73) H Lymphocytes (%) (Auto) 12 % (24-48) L Monocytes (%) (Auto) 7 % (0-9) Eosinophils (%) (Auto) 1 % (0-3) Basophils (%) (Auto) 1 % (0-3) Neutrophils # (Auto) 9.7 x10^3/uL (1.8-7.7) H Lymphocytes # (Auto) 1.4 x10^3/uL (1.0-4.8) Monocytes # (Auto) 0.9 x10^3/uL (0.0-1.1) Eosinophils # (Auto) 0.2 x10^3/uL (0.0-0.7) Basophils # (Auto) 0.1 x10^3/uL (0.0-0.2) Sodium Level 139 mmol/L (136-145) Potassium Level 5.2 mmol/L (3.5-5.1) H Chloride Level 107 mmol/L (98-107) Carbon Dioxide Level 21 mmol/L (21-32) Anion Gap 11 (6-14) Blood Urea Nitrogen 53 mg/dL (7-20) H Creatinine 2.2 mg/dL (0.6-1.0) H Estimated GFR (Cockcroft-Gault) 21.5 Glucose Level 254 mg/dL (70-99) H Calcium Level 8.5 mg/dL (8.5-10.1) Troponin I Quantitative < 0.017 ng/mL (0.000-0.055) Amylase Level 28 U/L (25-115) Lipase 40 U/L (73-393) L Laboratory Tests 01/11/21 15:40 01/12/21 03:30 Laboratory Tests 01/11/21 15:40 01/12/21 03:30 ECHOCARDIOGRAM ECHOCARDIOGRAM <Conclusion> The left ventricular systolic function is normal. The Ejection Fraction is 55%. There is normal LV segmental wall motion. Trace tricuspid regurgitation with an estimated PAP of 35 mmHg. There is no evidence of significant pericardial effusion. DATE: 03/03/20 [id number] HEART CATH HEART CATH Conclusion Successful PCI/drug eluting stent placement to the left circumflex artery. DATE: 03/25/17 0936 Conclusion 1. Two-vessel coronary artery disease 2. Successful PCI/drug eluting stent placement to left anterior descending artery (the culprit vessel) 3. Hypokinesis of the anterolateral wall with ejection fraction estimated at 45-50%. Recommendations 1. Aspirin 325 mg daily 2. Plavix 75 mg daily for preferably one year 3. Cardiovascular risk factor modification 4. Plan for staged PCI/stent placement to the left circumflex artery at a later date DATE: 03/24/17 1555 ASSESSMENT/PLAN ASSESSMENT/PLAN 1. Atypical CP: possibly GI 2. Abdominal pain 3. CAD: past stent to LAD 4. HTN: labile 5. HLP 6. COPD Recommendations 1. Restart home BP meds. 2. Secondary prevention measures 3. Will reschedule outpt MPI at an earlier date on Jan 18 at 9 AM 4. TTE today 5. Await GI input AMPARO MOELLER APRN Jan 12, 2021 10:33
[2021-01-12] MEDS ORDERED: CONTRAST GIVEN. MC PRN (10:45)
[2021-01-12 11:13] VITALS: BP 168/70
--- NOTE | 2021-01-12 11:42 | PDOC2 ---
GI CONSULT Date of Service: DATE: 01/12/21 TIME: 11:25 Reason For Consult: abd pain HPI: HPI: Pleasant 80 y/o female who reports sharp pain in epigastrium spreading up into chest and to both sides of upper abdomen. Began while watching tv at home on Saturday afternoon. Comes and goes randomly. Radiation to upper back between shoulder blades. When pain is most intense, can be associated w/ mild nausea. No change with eating but does hurt worse when touched. Was concerned it was her heart because she knows what a heart attack feels like and her feet and ankles have been swelling - she was supposed to have an echocardiogram as outpt. Denies reflux (though does take 2 Tums QHS for calcium), dysphagia, vomiting, diarrhea, constipation, change in appetite, bloating, early satiety, hematochezia, or melena. Has gained weight. H/o gastroparesis - abnormal GES here in 2015. Symptoms then included "getting sick after eating." Has not been bothered with this since she changed her diet to eat smaller portions. Says had an upper scope here a long time ago - "they were checking my gallbladder and liver and I got pancreatitis from it." Reports normal colonoscopy here >10 years ago. "I told 'em I wouldn't do another one." Diverticulosis noted on past imaging. Denies liver, GB, and PUD history. Takes ASA at home. Chronic anemia - not iron deficient per iron studies in 10/2020 and B12 was normal in 03/2020. Noted w/ accelerated HTN in ER. PMH: PMH: CAD w/ stents, HTN, OR, HLD, COPD, MARY BETH, GERD, anxiety, OA, CKD, DM, hypothyr oidism skin cancer removal, appendectomy, complete hysterectomy, left shoulder surgery FH: Family History: DM Social History: Smoke: Quit ALCOHOL: none Drugs: None ROS: GEN: Denies fevers, chills, sweats HEENT: Denies blurred vision, sore throat CV: +chest pain RESP: Denies shortness of air, cough GI: Per HPI : Denies hematuria, dysuria ENDO: +weight gain NEURO: Denies confusion, dizziness MSK: +LE swelling SKIN: Denies jaundice, pruritus Vitals: Vitals: Vital Signs Date Time Temp Pulse Resp B/P (MAP) Pulse Ox O2 Delivery O2 Flow Rate FiO2 01/12/21 11:13 97.7 87 16 168/70 (102) 99 Room Air 97.7 Labs: Labs: Laboratory Tests Test 01/11/21 15:40 01/11/21 17:44 01/11/21 17:50 01/11/21 20:00 White Blood Count 14.5 x10^3/uL (4.0-11.0) Red Blood Count 3.63 x10^6/uL (3.50-5.40) Hemoglobin 9.7 g/dL (12.0-15.5) Hematocrit 30.0 % (36.0-47.0) Mean Corpuscular Volume 83 fL (79-100) Mean Corpuscular Hemoglobin 27 pg (25-35) Mean Corpuscular Hemoglobin Concent 32 g/dL (31-37) Red Cell Distribution Width 15.2 % (11.5-14.5) Platelet Count 186 x10^3/uL (140-400) Neutrophils (%) (Auto) 82 % (31-73) Lymphocytes (%) (Auto) 10 % (24-48) Monocytes (%) (Auto) 7 % (0-9) Eosinophils (%) (Auto) 1 % (0-3) Basophils (%) (Auto) 1 % (0-3) Neutrophils # (Auto) 11.8 x10^3/uL (1.8-7.7) Lymphocytes # (Auto) 1.4 x10^3/uL (1.0-4.8) Monocytes # (Auto) 1.0 x10^3/uL (0.0-1.1) Eosinophils # (Auto) 0.2 x10^3/uL (0.0-0.7) Basophils # (Auto) 0.1 x10^3/uL (0.0-0.2) Sodium Level 140 mmol/L (136-145) Potassium Level 5.0 mmol/L (3.5-5.1) Chloride Level 108 mmol/L (98-107) Carbon Dioxide Level 20 mmol/L (21-32) Anion Gap 12 (6-14) Blood Urea Nitrogen 52 mg/dL (7-20) Creatinine 2.3 mg/dL (0.6-1.0) Estimated GFR (Cockcroft-Gault) 20.5 BUN/Creatinine Ratio 23 (6-20) Glucose Level 188 mg/dL (70-99) Calcium Level 8.8 mg/dL (8.5-10.1) Magnesium Level 1.5 mg/dL (1.8-2.4) Total Bilirubin 0.3 mg/dL (0.2-1.0) Aspartate Amino Transf (AST/SGOT) 16 U/L (15-37) Alanine Aminotransferase (ALT/SGPT) 30 U/L (14-59) Alkaline Phosphatase 140 U/L (46-116) Troponin I Quantitative < 0.017 ng/mL (0.000-0.055) < 0.017 ng/mL (0.000-0.055) [id number]-[id number]-Type Natriuretic Peptide 2107 pg/mL (0-449) Total Protein 6.8 g/dL (6.4-8.2) Albumin 3.0 g/dL (3.4-5.0) Albumin/Globulin Ratio 0.8 (1.0-1.7) Lipase 32 U/L (73-393) SARS-CoV-2 RNA (VIVIAN) Negative (Negative) SARS-CoV-2 Antigen (Rapid) Negative (NEGATIVE) Urine Collection Type Unknown Urine Color Yellow Urine Clarity Clear Urine pH 6.5 (<5.0-8.0) Urine Specific Cross 1.015 (1.000-1.030) Urine Protein >=300 mg/dL (NEG-TRACE) Urine Glucose (UA) Negative mg/dL (NEG) Urine Ketones (Stick) Negative mg/dL (NEG) Urine Blood Negative (NEG) Urine Nitrite Negative (NEG) Urine Bilirubin Negative (NEG) Urine Urobilinogen Dipstick 0.2 mg/dL (0.2 mg/dL) Urine Leukocyte Esterase Negative (NEG) Urine RBC Occ /HPF (0-2) Urine WBC Occ /HPF (0-4) Urine Squamous Epithelial Cells Few /LPF Urine Bacteria 0 /HPF (0-FEW) Urine Opiates Screen Neg (NEG) Urine Methadone Screen Neg (NEG) Urine Barbiturates Neg (NEG) Urine Phencyclidine Screen Neg (NEG) Urine Amphetamine/Methamphetamine Neg (NEG) Urine Benzodiazepines Screen Neg (NEG) Urine Cocaine Screen Neg (NEG) Urine Cannabinoids Screen Neg (NEG) Urine Ethyl Alcohol Neg (NEG) Test 01/11/21 22:51 01/12/21 03:30 01/12/21 07:09 Glucose (Fingerstick) 402 mg/dL (70-99) 191 mg/dL (70-99) White Blood Count 12.2 x10^3/uL (4.0-11.0) Red Blood Count 3.37 x10^6/uL (3.50-5.40) Hemoglobin 8.9 g/dL (12.0-15.5) Hematocrit 28.3 % (36.0-47.0) Mean Corpuscular Volume 84 fL (79-100) Mean Corpuscular Hemoglobin 27 pg (25-35) Mean Corpuscular Hemoglobin Concent 32 g/dL (31-37) Red Cell Distribution Width 15.6 % (11.5-14.5) Platelet Count 171 x10^3/uL (140-400) Neutrophils (%) (Auto) 80 % (31-73) Lymphocytes (%) (Auto) 12 % (24-48) Monocytes (%) (Auto) 7 % (0-9) Eosinophils (%) (Auto) 1 % (0-3) Basophils (%) (Auto) 1 % (0-3) Neutrophils # (Auto) 9.7 x10^3/uL (1.8-7.7) Lymphocytes # (Auto) 1.4 x10^3/uL (1.0-4.8) Monocytes # (Auto) 0.9 x10^3/uL (0.0-1.1) Eosinophils # (Auto) 0.2 x10^3/uL (0.0-0.7) Basophils # (Auto) 0.1 x10^3/uL (0.0-0.2) Sodium Level 139 mmol/L (136-145) Potassium Level 5.2 mmol/L (3.5-5.1) Chloride Level 107 mmol/L (98-107) Carbon Dioxide Level 21 mmol/L (21-32) Anion Gap 11 (6-14) Blood Urea Nitrogen 53 mg/dL (7-20) Creatinine 2.2 mg/dL (0.6-1.0) Estimated GFR (Cockcroft-Gault) 21.5 Glucose Level 254 mg/dL (70-99) Calcium Level 8.5 mg/dL (8.5-10.1) Troponin I Quantitative < 0.017 ng/mL (0.000-0.055) Amylase Level 28 U/L (25-115) Lipase 40 U/L (73-393) Allergies: Coded Allergies: Penicillins (Verified Allergy, Intermediate, hives, 01/11/21) Sulfa (Sulfonamide Antibiotics) (Verified Allergy, Intermediate, 01/11/21) codeine (Verified Adverse Reaction, Intermediate, ITCH, 01/11/21) morphine (Verified Adverse Reaction, Intermediate, ITCH, 01/11/21) Medications: Current Medications Medications (Trade) Dose Ordered Sig/Mindy Route PRN Reason Start Time Stop Time Status Last Admin Dose Admin Magnesium Sulfate 50 ml @ 25 mls/hr 1X ONCE IV 01/11/21 16:45 01/11/21 18:44 DC 01/11/21 16:50 Nitroglycerin (Nitrostat) 0.4 mg PRN Q5MIN PRN SL CHEST PAIN 01/11/21 20:15 01/11/21 20:15 Allopurinol (Zyloprim) 100 mg DAILY PO 01/12/21 09:00 01/12/21 08:45 Alprazolam (Xanax) 0.25 mg BID PO 01/11/21 23:30 01/12/21 08:43 Amlodipine Besylate (Norvasc) 5 mg DAILY PO 01/12/21 09:00 01/12/21 08:43 Aspirin (Ecotrin) 325 mg DAILYWBKFT PO 01/12/21 08:00 01/12/21 08:43 Atorvastatin Calcium (Lipitor) 40 mg HS PO 01/11/21 23:30 01/11/21 23:42 Vitamin D (Vitamin D3) 1,000 unit DAILY PO 01/12/21 09:00 01/12/21 08:45 Losartan Potassium (Cozaar) 25 mg DAILY PO 01/12/21 09:00 01/12/21 08:44 Sodium Bicarbonate (Sodium Bicarbonate) 650 mg TID PO 01/11/21 23:30 01/12/21 08:45 Tramadol HCl (Ultram) 50 mg PRN Q6HRS PRN PO PAIN MILD 01/11/21 23:15 01/12/21 06:26 Insulin Glargine (Lantus Syringe) 30 unit HS SQ 01/11/21 23:30 01/11/21 23:47 Levothyroxine Sodium (Synthroid) 200 mcg DAILY06 PO 01/12/21 06:00 01/12/21 06:26 Metoprolol Succinate (Toprol Xl) 50 mg DAILY PO 01/12/21 09:00 01/12/21 08:44 Sertraline HCl (Zoloft) 100 mg DAILY PO 01/12/21 09:00 01/12/21 08:43 Topiramate (Topamax) 50 mg BID PO 01/11/21 23:30 01/12/21 08:43 Multivitamins/ Minerals (I-Vince) 1 tab BID PO 01/11/21 23:30 01/12/21 08:45 Insulin Human Lispro (HumaLOG) 8 units 1X ONCE SQ 01/11/21 23:30 01/11/21 23:31 DC 01/11/21 23:48 Imaging: Imaging: CXR 01/11 Impression: 1. No acute cardiopulmonary process. Abd US 01/[address] A/P 01/12 ordered PE: GEN: NAD HEENT: Atraumatic, PERRL LUNGS: CTAB HEART: RRR ABD: NABS, S/ND, xiphoid tenderness, mild non-specific discomfort upper abdomen EXTREMITY: BLE edema SKIN: No rashes, no jaundice NEURO/PSYCH: A & O 3 A/P: A/P: Upper abdominal/chest pain Leukocytosis Chronic anemia - not iron deficient H/o gastroparesis - controlled w/ diet CRC screen - reportedly normal >10 years ago Diverticulosis ?post-ERCP pancreatitis COVID negative HTN, CAD, DM, CKD -- Await US and CT as ordered per Dr. Rosales. ?GERD Try PPI and GI cocktail. DANISH ROLDAN Jan 12, 2021 11:42
[2021-01-12] MEDS ORDERED: LIDO:MAALOX 1:1 20 ML SINGLE DOSE. PO PRN (11:45)
--- NOTE | 2021-01-12 12:02 | NUR ---
SS following for discharge planning. SS reviewed pt chart and discussed with pt RN. Pt is from home with family and is currently on room air. COVID19 negative. GI and Cardiology consulted. Abdominal Ultrasound and CT of Abdomen/Pelvis today. SS will continue to follow for discharge planning.
--- NOTE | 2021-01-12 12:42 | RAD ---
EXAMINATION: CT ABDOMEN+PELVIS with IV contrast, US ABDOMEN COMPLETE INDICATION:80 years, Female, abdominal pain. TECHNIQUE: Axial CT images of the abdomen and pelvis were obtained. Coronal and sagittal reformatted performed. COMPARISON: 08/10/2018. Exposure: One or more of the following individualized dose reduction techniques were utilized for thi s examination: 1. Automated exposure control 2. Adjustment of the mA and/or kV according to patient size 3. Use of iterative reconstruction technique. FINDINGS: CT ABDOMEN AND PELVIS LOWER CHEST: Calcified granulomas in the in the left lower lobe. ABDOMEN/PELVIS: Within the limitation of noncontrast exam, Normal size and morphology of the liver. No suspicious focal hepatic lesion. Calcified granulomas in the liver and spleen. No splenomegaly. Mild gallbladder hydrops. No CT evidence of acute cholecystiti s. Severe pancreatic parenchymal atrophy. No adrenal nodule. No hydronephrosis or nephrolithiasis in either kidney. Nonspecific bilateral perinephric fat stranding. Fluid density 1.5 cm lesion in the lo wer pole right kidney, most consistent with simple cyst as seen on the same-day ultrasound exam. No bowel obstruction or wall thickening. Sigmoid diverticulosis without diverticulitis. Appendix is n ot seen with certainty. Small hiatal hernia. 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 Mild aortoiliac atherosclerotic calcifications w ithout dilatation. Retroaortic left renal vein. No lymphadenopathy in the abdomen or pelvis by size c riteria. Unremarkable urinary bladder. Hysterectomy changes. No suspicious pelvic masses. MUSCULOSKELETAL: No acute osseous process or suspicious lesion. Grade 1 anterolisthesis of L4 over L5. Small fat-conta ining umbilical hernia. Calcified injection granuloma in the bilateral gluteal regions. IMPRESSION: 1. No acute abnormality in the abdomen and pelvis. 2. Sigmoid diverticulosis without acute diverticulitis. 3. Fluid density 1.5 cm lesion in the lower pole right kidney, most consistent with simple cyst as se en on the same-day ultrasound exam. ULTRASOUND ABDOMEN TECHNIQUE: Grayscale, color Doppler and limited spectral Doppler images of the abdomen were obtained. FINDINGS: LIVER: SIZE (LENGTH): 13.4 cm. ECHOGENICITY: Normal. PARENCHYMA: Homogeneous echotexture. No discrete focal lesion. INTRAHEPATIC BILE DUCTS: Nondilated. PORTAL VEIN: Patent with normal hepatopedal flow. GALLBLADDER: GALLBLADDER WALL THICKNESS: 2 mm MORPHOLOGY: Normal morphology. No wall hyperemia or pericholecystic free fluid. LUMEN: Normal. COMMON BILE DUCT DIAMETER: 4.6 mm RIGHT KIDNEY: MEASURES: 10.0 cm in length. MORPHOLOGY/PARENCHYMA: Normal corticomedullary differentiation. There is a simple appearing 2.[address] in the lower pole, corresponds to attenuating lesion seen on same day CT exam, unchanged since Jul.. COLLECTING SYSTEM: No hydronephrosis. LEFT KIDNEY: MEASURES: 9.3 cm in length MORPHOLOGY/PARENCHYMA: Normal corticomedullary differentiation with no shadowing calculus or discrete masses. COLLECTING SYSTEM: No hydronephrosis. SPLEEN: SIZE (LENGTH): 10.0 cm PARENCHYMA: Unremarkable. PANCREAS: VISUALIZED PORTIONS: head. APPEARANCE: Within normal limits. OTHER: RETROPERITONEUM, INFERIOR VENA CAVA: Normal caliber. AORTA: Normal caliber. FLUID:No free fluid. IMPRESSION: 1. No acute sonographic findings in the upper abdomen. 2. Simple appearing 2.0 cm cyst in the lower pole right kidney, similar to CT exam. Electronically signed by: Alice Peres MD (01/12/2021 12:39 PM) [id number]
[2021-01-12] MEDS: IV NORMAL SALINE 1000ML BAG 1,000 ML IV SCH ×2 (12:45→19:30)
[2021-01-12] MEDS: FUROSEMIDE 20 MG TABLET PO SCH (12:54)
--- NOTE | 2021-01-12 14:54 | HP ---
ADMIT DATE: 01/11/2021 MEDICAL HISTORY AND PHYSICAL REASON FOR ADMISSION TO THE HOSPITAL: Epigastric pain and chest pain. The patient has a known history of coronary artery disease, history of diabetes, chronic kidney disease. HISTORY OF PRESENT ILLNESS: The patient is a 80-year-old female. The patient has a history of known coronary artery disease, had a heart attack last year, had a stent and she sees Dr. Castillo, has seen him in the office as outpatient a week ago, scheduled to have a stress test done end of coming week. In the meantime, the patient yesterday had severe epigastric substernal chest pain going to the back on both sides, having short of breath. She was brought to the Emergency Room and a white count elevated to 14,000. EKG negative for ischemia. Troponin was negative. The patient was admitted and cardiology was consulted. PAST MEDICAL HISTORY: Has a history of CAD, cardiac stents, diabetes, hypertension, hyperlipidemia, GERD, chronic kidney disease. PAST SURGICAL HISTORY: Left shoulder replacement, hysterectomy, appendectomy, skin cancer removed from the nose. ALLERGIES: PENICILLIN, SULFA, CODEINE AND MORPHINE. MEDICATIONS AT HOME: Allopurinol 100 mg daily, Xanax 0.5 twice a day, amlodipine 5 mg daily, aspirin 325 daily, atorvastatin 40 mg daily, Coreg 25 mcg daily, furosemide 20 mg daily, NovoLog 15 units 3 times daily, Levemir 30 units at bedtime, levothyroxine 200 mcg daily, losartan 25 mg daily, metoprolol 50 mg daily, Zoloft 100 mg daily, sodium bicarbonate 650 mg 3 times a day, Topamax 50 mg twice a day, tramadol 50 mg as needed, Nephro-Vince 1 daily. PERSONAL HISTORY: Denies smoking, alcohol, drug abuse. FAMILY HISTORY: Positive for diabetes, heart disease. REVIEW OF SYSTEMS: Complains of epigastric pain, feels short of breath and pain going all over the back. PHYSICAL EXAMINATION: VITAL SIGNS: Temperature 98, pulse 87, respirations 16, blood pressure 194/69, 98% on room air. HEENT: Head is atraumatic. Pupils equal. Oral cavity, no congestion. NECK: Supple. Thyroid not enlarged. JVD not elevated. CHEST: Symmetrical. CARDIOVASCULAR: S1, S2. LUNGS: Clear to auscultation. ABDOMEN: Epigastric tenderness to deep palpation. No rebound. Bowel sounds present. No mass palpable. EXTERNAL GENITALIA: No Dudley. RECTUM: Deferred. EXTREMITIES: No calf tenderness, no edema. NEUROLOGIC: Moving all extremities. No focal deficits noted. LABORATORY DATA: Shows a white count of 14.5, hemoglobin 9.7, platelets 186. Electrolytes show a sodium 140, potassium 5.0, chloride 108, bicarb 20, BUN 52, creatinine 2.3, glucose 188. Magnesium 1.5. LFTs normal. Troponin was negative. Amylase and lipase negative and COVID test negative. Urine negative for infection. Drug screen was negative. Chest x-ray was negative. EKG negative for ischemia. FINAL IMPRESSION: 1. Retrosternal pain going to both shoulders. The patient has known history of coronary artery disease, rule out acute cardiac event. 2. Epigastric pain, rule out gallbladder disease. Gastroesophageal reflux disease causing the symptoms. 3. Chronic kidney disease stage 3B. Sees Renal. 4. Anemia of chronic disease. 5. Coronary artery disease, history of previous cardiac stents. 6. Diabetes, insulin-dependent. 7. Hypertension. 8. Hyperlipidemia. 9. Hypothyroidism. PLAN: At this time was admitted to the hospital and hydrated with IV fluids. Cardiology consult. Serial cardiac enzymes, EKG, telemetry monitor and also ultrasound of the abdomen, CT scan of the abdomen, GI consult and further recommendations to follow. CARMEN/RADHA DR: LILIA/vandana TID: [id number]
[2021-01-12 15:00] VITALS: BP 151/56
[2021-01-12] MEDS: PANTOPRAZOLE 40 MG TABLET.DR. PO SCH (15:15)
[2021-01-12 19:00] VITALS: BP 182/75
[2021-01-12] MEDS: ATORVASTATIN CALCIUM 40 MG TABLET. PO SCH (20:39)
[2021-01-12] MEDS: INSULIN GLARGINE SYRINGE. SQ SCH (20:43)
[2021-01-12 23:00] VITALS: BP 173/75
[2021-01-13] VITALS (7 sets, daily range): BP systolic 133–180; BP diastolic 57–80
[2021-01-13 04:44] LABS: BASO # 0.1 x10^3/uL (0.0-0.2); BASO % 1 % (0-3); EOS # 0.4 x10^3/uL (0.0-0.7); EOS % 3 % (0-3); HEMATOCRIT 27.9 % (36.0-47.0); HEMOGLOBIN 8.8 g/dL (12.0-15.5); LYMPH # 2.2 x10^3/uL (1.0-4.8); LYMPH % 15 % (24-48); MEAN CORPUSCULAR HEMOGLOBIN 27 pg (25-35); MEAN CORPUSCULAR HGB CONC 32 g/dL (31-37); MEAN CORPUSCULAR VOLUME 85 fL (79-100); MONO # 1.1 x10^3/uL (0.0-1.1); MONO % 8 % (0-9); NEUT % 74 % (31-73); PLATELET COUNT 179 x10^3/uL (140-400); RED BLOOD COUNT 3.29 x10^6/uL (3.50-5.40); RED CELL DISTRIBUTION WIDTH 15.5 % (11.5-14.5); WHITE BLOOD COUNT 14.8 x10^3/uL (4.0-11.0)
[2021-01-13 04:59] LABS: CALCIUM 8.5 mg/dL (8.5-10.1); CREATININE 2.7 mg/dL (0.6-1.0); POTASSIUM 4.6 mmol/L (3.5-5.1)
[2021-01-13] MEDS: IV NORMAL SALINE 1000ML BAG 1,000 ML IV SCH ×2 (05:30→15:02)
[2021-01-13] MEDS: PANTOPRAZOLE 40 MG TABLET.DR. PO SCH (05:41)
[2021-01-13] MEDS: LEVOTHYROXINE 100 MCG TABLET PO SCH (05:41)
[2021-01-13] MEDS: INSULIN LISPRO 300 UNITS/3 ML VIAL. SQ SCH ×7 (08:00→21:00)
[2021-01-13] MEDS: LOSARTAN POTASSIUM 25 MG TABLET. PO SCH (09:00)
[2021-01-13] MEDS: FUROSEMIDE 20 MG TABLET PO SCH (09:00)
[2021-01-13] MEDS: CHOLECALCIFEROL (VITAMIN D3) 1,000 UNIT TABLET PO SCH (09:16)
[2021-01-13] MEDS: MULTIVITAMIN I-VITE TABLET. PO SCH ×2 (09:16→20:17)
[2021-01-13] MEDS: TOPIRAMATE 25 MG TABLET. PO SCH ×2 (09:16→20:16)
[2021-01-13] MEDS: ASPIRIN ENTERIC COATED 325 MG TABLET.DR. PO SCH (09:16)
[2021-01-13] MEDS: ALPRAZolam 0.25 MG TABLET PO SCH ×2 (09:16→20:16)
[2021-01-13] MEDS: SERTRALINE 50 MG TABLET. PO SCH (09:16)
[2021-01-13] MEDS: SODIUM BICARBONATE 650 MG TABLET. PO SCH ×3 (09:17→20:16)
[2021-01-13] MEDS: METOPROLOL SUCC 24HR ER 50 MG TAB.ER.24H. PO SCH (09:17)
[2021-01-13] MEDS: ALLOPURINOL 100 MG TABLET. PO SCH (09:17)
--- NOTE | 2021-01-13 09:24 | PDOC ---
PROGRESS NOTES Date of Service: DATE: 01/13/21 TIME: 09:21 Subjective Subjective feels better today, still has abd pain Objective Objective Vital Signs Date Time Temp Pulse Resp B/P (MAP) Pulse Ox O2 Delivery O2 Flow Rate FiO2 01/13/21 07:00 98.0 77 18 139/59 (85) 98 Room Air 98.0 Intake and Output 01/13/21 07:00 Intake Total 1260 ml Output Total 1950 ml Balance -690 ml Intake Oral 1260 ml Output Urine Total 1950 ml # Voids 2 # Bowel Movements 2 Physical Exam Abdomen: Soft, Other (tender with palpation) Heart: Regular rate (SR), Normal S1, Normal S2, No murmurs Extremities: No cyanosis, No edema General: Alert, Oriented X3, Cooperative, No acute distress HEENT: Atraumatic, Mucous membr. moist/pink Lungs: Clear to auscultation, Normal air movement MUSCULOSKELETAL: Osteoarthritic changes both hands Neuro: Normal speech, Sensation intact Psych/Mental Status: Mental status NL, Mood NL Skin: No breakdown, No significant lesion Diagnosis Problem List Problems Medical Problems: (1) Acute kidney injury superimposed on chronic kidney disease Status: Acute (2) Uncontrolled hypertension Status: Acute Assessment Assessment Problems Medical Problems: (1) Acute kidney injury superimposed on chronic kidney disease Status: Acute (2) Uncontrolled hypertension Status: Acute FINAL IMPRESSION: 1. Retrosternal pain going to both shoulders. The patient has known history of coronary artery disease, rule out acute cardiac event. 2. Epigastric pain, rule out gallbladder disease. Gastroesophageal reflux disease causing the symptoms. 3. Chronic kidney disease stage 3B. Sees Renal. 4. Anemia of chronic disease. 5. Coronary artery disease, history of previous cardiac stents. 6. Diabetes, insulin-dependent. 7. Hypertension. 8. Hyperlipidemia. 9. Hypothyroidism. PLAN: sono abd -neg ct scan abd and pelvis -ve still has abd pain and tenderness epigastric. wbc 14 spoke with GI EGD today ? surgical consult ?gallbladder At this time was admitted to the hospital and hydrated with IV fluids. Cardiology consult. Serial cardiac enzymes, EKG, rn cardiac and also ultrasound of the abdomen, CT scan of the abdomen, GI consult and further recommendations to follow. Plan Plan of Care Problems Medical Problems: (1) Acute kidney injury superimposed on chronic kidney disease Status: Acute (2) Uncontrolled hypertension Status: Acute Comment Review of Relevant I have reviewed the following items hanna (where applicable) has been applied. Labs Laboratory Tests Test 01/12/21 11:40 01/12/21 16:40 01/12/21 20:42 01/13/21 04:15 Glucose (Fingerstick) 163 mg/dL (70-99) 93 mg/dL (70-99) 177 mg/dL (70-99) White Blood Count 14.8 x10^3/uL (4.0-11.0) Red Blood Count 3.29 x10^6/uL (3.50-5.40) Hemoglobin 8.8 g/dL (12.0-15.5) Hematocrit 27.9 % (36.0-47.0) Mean Corpuscular Volume 85 fL (79-100) Mean Corpuscular Hemoglobin 27 pg (25-35) Mean Corpuscular Hemoglobin Concent 32 g/dL (31-37) Red Cell Distribution Width 15.5 % (11.5-14.5) Platelet Count 179 x10^3/uL (140-400) Neutrophils (%) (Auto) 74 % (31-73) Lymphocytes (%) (Auto) 15 % (24-48) Monocytes (%) (Auto) 8 % (0-9) Eosinophils (%) (Auto) 3 % (0-3) Basophils (%) (Auto) 1 % (0-3) Neutrophils # (Auto) 11.0 x10^3/uL (1.8-7.7) Lymphocytes # (Auto) 2.2 x10^3/uL (1.0-4.8) Monocytes # (Auto) 1.1 x10^3/uL (0.0-1.1) Eosinophils # (Auto) 0.4 x10^3/uL (0.0-0.7) Basophils # (Auto) 0.1 x10^3/uL (0.0-0.2) Sodium Level 139 mmol/L (136-145) Potassium Level 4.6 mmol/L (3.5-5.1) Chloride Level 106 mmol/L (98-107) Carbon Dioxide Level 22 mmol/L (21-32) Anion Gap 11 (6-14) Blood Urea Nitrogen 55 mg/dL (7-20) Creatinine 2.7 mg/dL (0.6-1.0) Estimated GFR (Cockcroft-Gault) 17.0 Glucose Level 126 mg/dL (70-99) Calcium Level 8.5 mg/dL (8.5-10.1) Test 01/13/21 07:56 Glucose (Fingerstick) 105 mg/dL (70-99) Medications Current Medications Info (CONTRAST GIVEN -- Rx MONITORING) 1 each PRN DAILY PRN MC SEE COMMENTS; Start 01/12/21 at 10:45; Stop 01/14/21 at 10:44 Iohexol (Omnipaque 240 Mg/ml) 30 ml 1X ONCE IV Last administered on 01/12/21at 10:30; Start 01/12/21 at 10:30; Stop 01/12/21 at 10:32; Status DC Multi-Ingredient Mouthwash/Gargle (Gi Cocktail) 20 ml PRN QID PRN PO chest/abd pain; Start 01/12/21 at 11:45 Pantoprazole Sodium (Protonix) 40 mg DAILYAC PO Last administered on 01/13/21at 05:41; Start 01/12/21 at 13:00 Sodium Chloride 1,000 ml @ 100 mls/hr Q10H IV Last administered on 01/12/21at 12:45; Start 01/12/21 at 09:30 Vitals/I & O Vital Sign - Last 24 Hours 01/12/21 01/12/21 01/12/21 01/12/21 11:13 15:00 19:00 20:00 Temp 97.7 97.6 97.8 97.7 97.6 97.8 Pulse 87 78 81 Resp 16 16 17 B/P (MAP) 168/70 (102) 151/56 (87) 182/75 (110) Pulse Ox 99 98 96 O2 Delivery Room Air Room Air Room Air Room Air 01/12/21 01/12/21 01/12/21 01/13/21 20:46 21:16 23:00 02:57 Temp 98.4 97.7 98.4 97.7 Pulse 80 78 Resp 18 18 16 18 B/P (MAP) 173/75 (107) 135/71 (92) Pulse Ox 98 97 95 97 O2 Delivery Room Air Room Air Room Air Room Air 01/13/21 07:00 Temp 98.0 98.0 Pulse 77 Resp 18 B/P (MAP) 139/59 (85) Pulse Ox 98 O2 Delivery Room Air Intake and Output 01/12/21 01/12/21 01/13/21 15:00 23:00 07:00 Intake Total 360 ml 900 ml 0 ml Output Total 600 ml 500 ml 850 ml Balance -240 ml 400 ml -850 ml Justifications for Admission Other Justification VIANEY HOLT MD Jan 13, 2021 09:24
--- NOTE | 2021-01-13 10:36 | PDOC ---
AMPARO MOELLER MEDICAL INSTRUMENT TECHNICIAN 01/13/21 1036: CARDIO Progress Notes Date and Time Date of Service 01/13/2021 Time of Evaluation 0940 Subjective Subjective: No Chest Pain, No shortness of breath, No Palpitations, Other (still has abd pain) Vitals Vitals Vital Signs Date Time Temp Pulse Resp B/P (MAP) Pulse Ox O2 Delivery O2 Flow Rate FiO2 01/13/21 09:17 77 139/59 01/13/21 08:00 Room Air 01/13/21 07:00 98.0 18 98 98.0 Weight Weight [ ] Input and Output Intake and Output Intake and Output 01/13/21 07:00 Intake Total 1260 ml Output Total 1950 ml Balance -690 ml Intake Oral 1260 ml Output Urine Total 1950 ml # Voids 2 # Bowel Movements 2 Laboratory Labs Laboratory Tests Test 01/12/21 11:40 01/12/21 16:40 01/12/21 20:42 01/13/21 04:15 Glucose (Fingerstick) 163 mg/dL (70-99) 93 mg/dL (70-99) 177 mg/dL (70-99) White Blood Count 14.8 x10^3/uL (4.0-11.0) Red Blood Count 3.29 x10^6/uL (3.50-5.40) Hemoglobin 8.8 g/dL (12.0-15.5) Hematocrit 27.9 % (36.0-47.0) Mean Corpuscular Volume 85 fL (79-100) Mean Corpuscular Hemoglobin 27 pg (25-35) Mean Corpuscular Hemoglobin Concent 32 g/dL (31-37) Red Cell Distribution Width 15.5 % (11.5-14.5) Platelet Count 179 x10^3/uL (140-400) Neutrophils (%) (Auto) 74 % (31-73) Lymphocytes (%) (Auto) 15 % (24-48) Monocytes (%) (Auto) 8 % (0-9) Eosinophils (%) (Auto) 3 % (0-3) Basophils (%) (Auto) 1 % (0-3) Neutrophils # (Auto) 11.0 x10^3/uL (1.8-7.7) Lymphocytes # (Auto) 2.2 x10^3/uL (1.0-4.8) Monocytes # (Auto) 1.1 x10^3/uL (0.0-1.1) Eosinophils # (Auto) 0.4 x10^3/uL (0.0-0.7) Basophils # (Auto) 0.1 x10^3/uL (0.0-0.2) Sodium Level 139 mmol/L (136-145) Potassium Level 4.6 mmol/L (3.5-5.1) Chloride Level 106 mmol/L (98-107) Carbon Dioxide Level 22 mmol/L (21-32) Anion Gap 11 (6-14) Blood Urea Nitrogen 55 mg/dL (7-20) Creatinine 2.7 mg/dL (0.6-1.0) Estimated GFR (Cockcroft-Gault) 17.0 Glucose Level 126 mg/dL (70-99) Calcium Level 8.5 mg/dL (8.5-10.1) Test 01/13/21 07:56 Glucose (Fingerstick) 105 mg/dL (70-99) Physical Exam HEENT: Neck Supple W Full Motion Chest: Symmetric LUNGS: Clear to Auscultation Heart: RRR (SR) Abdomen: Other (diffuse abd tenderness but more so to epigastric region) Extremities: No Calf Tenderness Neurology: alert, oriented, follow commands Assessment Assessment 1. Atypical CP: possibly GI 2. Abdominal pain; EGD pending 3. CAD: past stent to LAD 4. HTN: controlled 5. HLP 6. COPD 7. ANASTASIIA on CKD3: received IV contrast yesterday per PCP Recommendations 1. Hold lasix and losartan. Increase norvasc and continue metoprolol. Hydralazine IV PRN 2. Secondary prevention measures 3. Will reschedule outpt MPI at an earlier date on Jan 18 at 9 AM 4. TTE today Justicifation of Admission Dx: Justifications for Admission: Justification of Admission Dx: Yes ELIZABETH SEWELL MD 01/13/21 1612: CARDIO Progress Notes Assessment Assessment Patient seen and examined I agree with our nurse practitioners assessment and plan. Atypical CP: possibly GI Abdominal pain; EGD pending CAD: past stent to LAD. No acute ischemic EKG changes. We will move up outpatient MPI testing as above. HTN: controlled HLP COPD ANASTASIIA on CKD3: received IV contrast yesterday per PCP AMPARO MOELLER APRN Jan 13, 2021 10:36 ELIZABETH SEWELL MD Jan 13, 2021 16:12
[2021-01-13] MEDS ORDERED: IV RINGERS,LACTATED 1000ML 1,000 ML IV SCH (11:30)
--- NOTE | 2021-01-13 12:37 | PDOC2 ---
BRANDIE MCKEON SURGICAL DEVICE SALES REPRESENTATIVE 01/13/21 1237: CONSULT Date of Consult Date of Consult DATE: 01/13/21 TIME: 12:24 Reason for Consult Reason for Consult: abdominal pain Referring Physician Referring Physician: Dr Rosales Identification/Chief Complaint Chief Complaint abdominal pain Source Source: Chart review, Patient History of Present Illness Reason for Visit: Epigastric pain, radiates up chest started on Saturday. Some associated nausea. Eating does not appear to affect it, although she does report no appetite. Past Medical History Cardiovascular: CAD, HTN, DC, Hyperlipidemia Pulmonary: COPD, Other CENTRAL NERVOUS SYSTEM: Other GI: GERD Heme/Onc: Anemia NOS Hepatobiliary: No pertinent hx Psych: Anxiety Musculoskeletal: Osteoarthritis Rheumatologic: No pertinent hx Infectious disease: No pertinent hx Renal/: Chronic renal insuff Endocrine: Diabetes, Hypothyroidism Past Surgical History Past Surgical History: Appendectomy, Hysterectomy, Other Family History Family History: Diabetes Social History Quit ALCOHOL: none Drugs: None Lives: with Family Current Problem List Problem List Problems Medical Problems: (1) Acute kidney injury superimposed on chronic kidney disease Status: Acute (2) Uncontrolled hypertension Status: Acute Current Medications Current Medications Current Medications Magnesium Sulfate 50 ml @ 25 mls/hr 1X ONCE IV Last administered on 01/11/21at 16:50; Start 01/11/21 at 16:45; Stop 01/11/21 at 18:44; Status DC Nitroglycerin (Nitrostat) 0.4 mg PRN Q5MIN PRN SL CHEST PAIN Last administered on 01/11/21at 20:15; Start 01/11/21 at 20:15 Allopurinol (Zyloprim) 100 mg DAILY PO Last administered on 01/13/21at 09:17; Start 01/12/21 at 09:00 Alprazolam (Xanax) 0.25 mg BID PO Last administered on 01/13/21at 09:16; Start 01/11/21 at 23:30 Amlodipine Besylate (Norvasc) 5 mg DAILY PO Last administered on 01/13/21at 09:16; Start 01/12/21 at 09:00; Stop 01/13/21 at 10:34; Status DC Aspirin (Ecotrin) 325 mg DAILYWBKFT PO Last administered on 01/13/21at 09:16; Start 01/12/21 at 08:00 Atorvastatin Calcium (Lipitor) 40 mg HS PO Last administered on 01/12/21 20: 39; Start 01/11/21 at 23:30 Vitamin D (Vitamin D3) 1,000 unit DAILY PO Last administered on 01/13/21 09:16; Start 01/12/21 at 09:00 Furosemide (Lasix) 60 mg DAILY PO Last administered on 01/12/21 12:54; Start 01/12/21 at 09:00; Stop 01/13/21 at 10:34; Status DC Losartan Potassium (Cozaar) 25 mg DAILY PO Last administered on 01/12/21 08:44; Start 01/12/21 at 09:00; Stop 01/13/21 at 10:34; Status DC Sodium Bicarbonate (Sodium Bicarbonate) 650 mg TID PO Last administered on 01/13/21 09:17; Start 01/11/21 at 23:30 Tramadol HCl (Ultram) 50 mg PRN Q6HRS PRN PO PAIN MILD Last administered on 01/12/21 20:46; Start 01/11/21 at 23:15 Insulin Human Lispro (HumaLOG) 15 units TIDWMEALS SQ Last administered on 01/12/21 12:58; Start 01/12/21 at 08:00 Insulin Glargine (Lantus Syringe) 30 unit HS SQ Last administered on 01/12/21 20:43; Start 01/11/21 at 23:30 Levothyroxine Sodium (Synthroid) 200 mcg DAILY06 PO Last administered on 01/13/21 05:41; Start 01/12/21 at 06:00 Metoprolol Succinate (Toprol Xl) 50 mg DAILY PO Last administered on 01/13/21 09:17; Start 01/12/21 at 09:00 Sertraline HCl (Zoloft) 100 mg DAILY PO Last administered on 01/13/21 09:16; Start 01/12/21 at 09:00 Topiramate (Topamax) 50 mg BID PO Last administered on 01/13/21 09:16; Start 01/11/21 at 23:30 Multivitamins/ Minerals (I-Vince) 1 tab BID PO Last administered on 01/13/21 09:16; Start 01/11/21 at 23:30 Hydralazine HCl (Apresoline Inj) 10 mg PRN Q4HRS PRN IVP ELEVATED BP, SEE COMMENTS; Start 01/11/21 at 23:15 Insulin Human Lispro (HumaLOG) 0-5 UNITS TIDWMEALHC SQ ; Start 01/12/21 at 08:00 Dextrose (Dextrose 50%-Water Syringe) 12.5 gm PRN Q15MIN PRN IV SEE COMMENTS; Start 01/11/21 at 23:30 Insulin Human Lispro (HumaLOG) 8 units 1X ONCE SQ Last administered on 01/11/21at 23:48; Start 01/11/21 at 23:30; Stop 01/11/21 at 23:31; Status DC Sodium Chloride 1,000 ml @ 100 mls/hr Q10H IV Last administered on 01/12/21at 12:45; Start 01/12/21 at 09:30 Iohexol (Omnipaque 240 Mg/ml) 30 ml 1X ONCE IV Last administered on 01/12/21at 10:30; Start 01/12/21 at 10:30; Stop 01/12/21 at 10:32; Status DC Info (CONTRAST GIVEN -- Rx MONITORING) 1 each PRN DAILY PRN MC SEE COMMENTS; Start 01/12/21 at 10:45; Stop 01/14/21 at 10:44 Pantoprazole Sodium (Protonix) 40 mg DAILYAC PO Last administered on 01/13/21at 05:41; Start 01/12/21 at 13:00 Multi-Ingredient Mouthwash/Gargle (Gi Cocktail) 20 ml PRN QID PRN PO chest/abd pain; Start 01/12/21 at 11:45 Amlodipine Besylate (Norvasc) 10 mg DAILY PO ; Start 01/14/21 at 09:00 Ringer's Solution 1,000 ml @ 50 mls/hr Q20H IV ; Start 01/13/21 at 11:30; Stop 01/13/21 at 11:31; Status DC Active Scripts Active Aspirin Ec (Aspirin) 325 Mg Tablet. 325 Mg PO DAILYWBKFT 30 Days Reported Vitamin D3 (Vitamin D) 25 Mcg Tablet 25 Mcg PO DAILY 1,000 UNITS = 25 MCG Levemir (Insulin Detemir) 100 Unit/1 Ml Vial 30 Unit SQ HS Amlodipine Besylate 5 Mg Tablet 5 Mg PO DAILY Preservision Areds Softgel (Vit A/Vit C/Vit E/Zinc/Copper) 1 Each Capsule 1 Cap PO BID 30 Days Alprazolam 0.25 Mg Tablet 1 Tab PO BID Furosemide 20 Mg Tablet 3 Tab PO DAILY Tramadol Hcl 50 Mg Tablet 50 Mg PO Q6HRS PRN Atorvastatin Calcium 40 Mg Tablet 40 Mg PO HS Sertraline Hcl 100 Mg Tablet 100 Mg PO DAILY Levothyroxine Sodium 200 Mcg Tablet 200 Mcg PO DAILYAC Sodium Bicarbonate 650 Mg Tablet 650 Mg PO TID Novolog (Insulin Aspart) 100 Unit/1 Ml Vial 15 Unit SQ TIDAC Cozaar (Losartan Potassium) 25 Mg Tablet 25 Mg PO DAILY Allopurinol 100 Mg Tablet 100 Mg PO Topamax (Topiramate) 50 Mg Tablet 50 Mg PO BID Toprol Xl (Metoprolol Succinate) 50 Mg Tab.er.24h 50 Mg PO DAILY Allergies Allergies: Coded Allergies: Penicillins (Verified Allergy, Intermediate, hives, 01/13/21) Sulfa (Sulfonamide Antibiotics) (Verified Allergy, Intermediate, 01/13/21) codeine (Verified Adverse Reaction, Intermediate, ITCH, 01/13/21) morphine (Verified Adverse Reaction, Intermediate, ITCH, 01/13/21) ROS General: No: Chills, Other (fevers) PSYCHOLOGICAL ROS: No: Anxiety, Depression Eyes: No Blurry vision, No Double vision HEENT: No: Heacaches, Sore Throat Hematological and Lymphatic: No: Bleeding Problems, Blood Clots Respiratory: No: Cough, Shortness of breath Cardiovascular: No Chest Pain, No Palpitations Gastrointestinal: Yes Other (see hpi) Genitourinary: No Dysuria, No Retention Musculoskeletal: No Joint Pain, No Muscle Pain Neurological: No Impaired Coord/balance, No Numbness/Tingling Skin: No Pruritus, No Rash Physical Exam General: Alert, Oriented X3, Cooperative, No acute distress HEENT: PERRLA, Mucous membr. moist/pink Lungs: Clear to auscultation, Normal air movement Heart: Regular rate, Normal S1, Normal S2, No murmurs Abdomen: Soft, Other (ttp upper abdomen) Extremities: No clubbing, No cyanosis Skin: No rashes, No breakdown Neuro: Normal gait, Normal speech Psych/Mental Status: Mental status NL, Mood NL Vitals VITALS Vital Signs Date Time Temp Pulse Resp B/P (MAP) Pulse Ox O2 Delivery O2 Flow Rate FiO2 01/13/21 09:17 77 139/59 01/13/21 08:00 Room Air 01/13/21 07:00 98.0 18 98 98.0 Labs Labs Laboratory Tests Test 01/11/21 15:40 01/11/21 17:44 01/11/21 17:50 01/11/21 20:00 White Blood Count 14.5 x10^3/uL (4.0-11.0) Red Blood Count 3.63 x10^6/uL (3.50-5.40) Hemoglobin 9.7 g/dL (12.0-15.5) Hematocrit 30.0 % (36.0-47.0) Mean Corpuscular Volume 83 fL (79-100) Mean Corpuscular Hemoglobin 27 pg (25-35) Mean Corpuscular Hemoglobin Concent 32 g/dL (31-37) Red Cell Distribution Width 15.2 % (11.5-14.5) Platelet Count 186 x10^3/uL (140-400) Neutrophils (%) (Auto) 82 % (31-73) Lymphocytes (%) (Auto) 10 % (24-48) Monocytes (%) (Auto) 7 % (0-9) Eosinophils (%) (Auto) 1 % (0-3) Basophils (%) (Auto) 1 % (0-3) Neutrophils # (Auto) 11.8 x10^3/uL (1.8-7.7) Lymphocytes # (Auto) 1.4 x10^3/uL (1.0-4.8) Monocytes # (Auto) 1.0 x10^3/uL (0.0-1.1) Eosinophils # (Auto) 0.2 x10^3/uL (0.0-0.7) Basophils # (Auto) 0.1 x10^3/uL (0.0-0.2) Sodium Level 140 mmol/L (136-145) Potassium Level 5.0 mmol/L (3.5-5.1) Chloride Level 108 mmol/L (98-107) Carbon Dioxide Level 20 mmol/L (21-32) Anion Gap 12 (6-14) Blood Urea Nitrogen 52 mg/dL (7-20) Creatinine 2.3 mg/dL (0.6-1.0) Estimated GFR (Cockcroft-Gault) 20.5 BUN/Creatinine Ratio 23 (6-20) Glucose Level 188 mg/dL (70-99) Calcium Level 8.8 mg/dL (8.5-10.1) Magnesium Level 1.5 mg/dL (1.8-2.4) Total Bilirubin 0.3 mg/dL (0.2-1.0) Aspartate Amino Transf (AST/SGOT) 16 U/L (15-37) Alanine Aminotransferase (ALT/SGPT) 30 U/L (14-59) Alkaline Phosphatase 140 U/L (46-116) Troponin I Quantitative < 0.017 ng/mL (0.000-0.055) < 0.017 ng/mL (0.000-0.055) XI-Byp-O-Type Natriuretic Peptide 2107 pg/mL (0-449) Total Protein 6.8 g/dL (6.4-8.2) Albumin 3.0 g/dL (3.4-5.0) Albumin/Globulin Ratio 0.8 (1.0-1.7) Lipase 32 U/L (73-393) SARS-CoV-2 RNA (VIVIAN) Negative (Negative) SARS-CoV-2 Antigen (Rapid) Negative (NEGATIVE) Urine Collection Type Unknown Urine Color Yellow Urine Clarity Clear Urine pH 6.5 (<5.0-8.0) Urine Specific [place] 1.015 (1.000-1.030) Urine Protein >=300 mg/dL (NEG-TRACE) Urine Glucose (UA) Negative mg/dL (NEG) Urine Ketones (Stick) Negative mg/dL (NEG) Urine Blood Negative (NEG) Urine Nitrite Negative (NEG) Urine Bilirubin Negative (NEG) Urine Urobilinogen Dipstick 0.2 mg/dL (0.2 mg/dL) Urine Leukocyte Esterase Negative (NEG) Urine RBC Occ /HPF (0-2) Urine WBC Occ /HPF (0-4) Urine Squamous Epithelial Cells Few /LPF Urine Bacteria 0 /HPF (0-FEW) Urine Opiates Screen Neg (NEG) Urine Methadone Screen Neg (NEG) Urine Barbiturates Neg (NEG) Urine Phencyclidine Screen Neg (NEG) Urine Amphetamine/Methamphetamine Neg (NEG) Urine Benzodiazepines Screen Neg (NEG) Urine Cocaine Screen Neg (NEG) Urine Cannabinoids Screen Neg (NEG) Urine Ethyl Alcohol Neg (NEG) Test 01/11/21 22:51 01/12/21 03:30 01/12/21 07:09 01/12/21 11:40 Glucose (Fingerstick) 402 mg/dL (70-99) 191 mg/dL (70-99) 163 mg/dL (70-99) White Blood Count 12.2 x10^3/uL (4.0-11.0) Red Blood Count 3.37 x10^6/uL (3.50-5.40) Hemoglobin 8.9 g/dL (12.0-15.5) Hematocrit 28.3 % (36.0-47.0) Mean Corpuscular Volume 84 fL (79-100) Mean Corpuscular Hemoglobin 27 pg (25-35) Mean Corpuscular Hemoglobin Concent 32 g/dL (31-37) Red Cell Distribution Width 15.6 % (11.5-14.5) Platelet Count 171 x10^3/uL (140-400) Neutrophils (%) (Auto) 80 % (31-73) Lymphocytes (%) (Auto) 12 % (24-48) Monocytes (%) (Auto) 7 % (0-9) Eosinophils (%) (Auto) 1 % (0-3) Basophils (%) (Auto) 1 % (0-3) Neutrophils # (Auto) 9.7 x10^3/uL (1.8-7.7) Lymphocytes # (Auto) 1.4 x10^3/uL (1.0-4.8) Monocytes # (Auto) 0.9 x10^3/uL (0.0-1.1) Eosinophils # (Auto) 0.2 x10^3/uL (0.0-0.7) Basophils # (Auto) 0.1 x10^3/uL (0.0-0.2) Sodium Level 139 mmol/L (136-145) Potassium Level 5.2 mmol/L (3.5-5.1) Chloride Level 107 mmol/L (98-107) Carbon Dioxide Level 21 mmol/L (21-32) Anion Gap 11 (6-14) Blood Urea Nitrogen 53 mg/dL (7-20) Creatinine 2.2 mg/dL (0.6-1.0) Estimated GFR (Cockcroft-Gault) 21.5 Glucose Level 254 mg/dL (70-99) Calcium Level 8.5 mg/dL (8.5-10.1) Troponin I Quantitative < 0.017 ng/mL (0.000-0.055) Amylase Level 28 U/L (25-115) Lipase 40 U/L (73-393) Test 01/12/21 16:40 01/12/21 20:42 01/13/21 04:15 01/13/21 07:56 Glucose (Fingerstick) 93 mg/dL (70-99) 177 mg/dL (70-99) 105 mg/dL (70-99) White Blood Count 14.8 x10^3/uL (4.0-11.0) Red Blood Count 3.29 x10^6/uL (3.50-5.40) Hemoglobin 8.8 g/dL (12.0-15.5) Hematocrit 27.9 % (36.0-47.0) Mean Corpuscular Volume 85 fL (79-100) Mean Corpuscular Hemoglobin 27 pg (25-35) Mean Corpuscular Hemoglobin Concent 32 g/dL (31-37) Red Cell Distribution Width 15.5 % (11.5-14.5) Platelet Count 179 x10^3/uL (140-400) Neutrophils (%) (Auto) 74 % (31-73) Lymphocytes (%) (Auto) 15 % (24-48) Monocytes (%) (Auto) 8 % (0-9) Eosinophils (%) (Auto) 3 % (0-3) Basophils (%) (Auto) 1 % (0-3) Neutrophils # (Auto) 11.0 x10^3/uL (1.8-7.7) Lymphocytes # (Auto) 2.2 x10^3/uL (1.0-4.8) Monocytes # (Auto) 1.1 x10^3/uL (0.0-1.1) Eosinophils # (Auto) 0.4 x10^3/uL (0.0-0.7) Basophils # (Auto) 0.1 x10^3/uL (0.0-0.2) Sodium Level 139 mmol/L (136-145) Potassium Level 4.6 mmol/L (3.5-5.1) Chloride Level 106 mmol/L (98-107) Carbon Dioxide Level 22 mmol/L (21-32) Anion Gap 11 (6-14) Blood Urea Nitrogen 55 mg/dL (7-20) Creatinine 2.7 mg/dL (0.6-1.0) Estimated GFR (Cockcroft-Gault) 17.0 Glucose Level 126 mg/dL (70-99) Calcium Level 8.5 mg/dL (8.5-10.1) Test 01/13/21 12:21 Glucose (Fingerstick) 90 mg/dL (70-99) Laboratory Tests Test 01/12/21 16:40 01/12/21 20:42 01/13/21 04:15 01/13/21 07:56 Glucose (Fingerstick) 93 mg/dL (70-99) 177 mg/dL (70-99) 105 mg/dL (70-99) White Blood Count 14.8 x10^3/uL (4.0-11.0) Red Blood Count 3.29 x10^6/uL (3.50-5.40) Hemoglobin 8.8 g/dL (12.0-15.5) Hematocrit 27.9 % (36.0-47.0) Mean Corpuscular Volume 85 fL (79-100) Mean Corpuscular Hemoglobin 27 pg (25-35) Mean Corpuscular Hemoglobin Concent 32 g/dL (31-37) Red Cell Distribution Width 15.5 % (11.5-14.5) Platelet Count 179 x10^3/uL (140-400) Neutrophils (%) (Auto) 74 % (31-73) Lymphocytes (%) (Auto) 15 % (24-48) Monocytes (%) (Auto) 8 % (0-9) Eosinophils (%) (Auto) 3 % (0-3) Basophils (%) (Auto) 1 % (0-3) Neutrophils # (Auto) 11.0 x10^3/uL (1.8-7.7) Lymphocytes # (Auto) 2.2 x10^3/uL (1.0-4.8) Monocytes # (Auto) 1.1 x10^3/uL (0.0-1.1) Eosinophils # (Auto) 0.4 x10^3/uL (0.0-0.7) Basophils # (Auto) 0.1 x10^3/uL (0.0-0.2) Sodium Level 139 mmol/L (136-145) Potassium Level 4.6 mmol/L (3.5-5.1) Chloride Level 106 mmol/L (98-107) Carbon Dioxide Level 22 mmol/L (21-32) Anion Gap 11 (6-14) Blood Urea Nitrogen 55 mg/dL (7-20) Creatinine 2.7 mg/dL (0.6-1.0) Estimated GFR (Cockcroft-Gault) 17.0 Glucose Level 126 mg/dL (70-99) Calcium Level 8.5 mg/dL (8.5-10.1) Test 01/13/21 12:21 Glucose (Fingerstick) 90 mg/dL (70-99) Assessment/Plan Assessment/Plan abdominal pain imaging reviewed, no acute findings GI has EGD planned no surgical indications KAYLEN JEAN BAPTISTE MD 01/14/21 1049: CONSULT Assessment/Plan Assessment/Plan Patient seen and examined by me resting comfortably in bed does describe abdominal pain mostly epigastric area mildly tender to palpation in this area no peritoneal signs. Agree with [place] assessment and plan awaiting EGD results BRANDIE MCKEON APRN Jan 13, 2021 12:37 KAYLEN JEAN BAPTISTE MD Jan 14, 2021 10:49
--- NOTE | 2021-01-13 13:20 | NUR ---
SS following up with discharge planning. SS reviewed pt chart and discussed with pt RN. Pt is currently on room air. COVID19 negative. Surgery, GI, and Cardiology following. No surgical plans at this time. EGD and ECHO today. SS will continue to follow for discharge planning.
--- NOTE | 2021-01-13 13:23 | CARD ---
MR#: [id number] Date of Study: 01/13/2021 Ordering Physician: AMPARO MOELLER, Referring Physician: AMPARO MOELLER Tech: Mauricio Montes [facility] APPROVED REPORT EXAM: Two-dimensional and M-mode echocardiogram with Doppler and color Doppler. Other Information Quality : AverageLimitedTechnically LimitedExcellentGoodAverageFairHR: 77bpm Rhythm : NSR INDICATION Chest Pain RISK FACTORS Hypertension Hyperlipidemia Diabetes COPD 2D DIMENSIONS Left Atrium(2D)3.5 (1.6-4.0cm)IVSd0.9 (0.7-1.1cm) Aortic Root(2D)3.0 (2.0-3.7cm)LVDd4.7 (3.9-5.9cm) LVOT Diameter1.8 (1.8-2.4cm)PWd0.9 (0.7-1.1cm) LVDs3.1 (2.5-4.0cm)FS (%) 33.4 % SV62.8 ml Aortic Valve AoV Peak Mauricio.149.1cm/sAoV VTI25.8cm AO Peak GR.8.9mmHgLVOT Peak Mauricio.95.5cm/s AO Mean GR.4mmHgAVA (VMAX)1.67cm2 Mitral Valve MV E Ndrinqut86.2cm/sMV E Peak Gr.7mmHg MV DECEL [id number] A Frafpcze365.3cm/s MV E Mean Gr.2mmHgE/A Ratio0.8 Pulmonary Valve PV Peak Vjherwfk00.6cm/s Tricuspid Valve TR P. [id number]/sTR Peak Gr.27mmHg Pulmonary Vein S1 Cdyresyc46.2cm/sD2 Mcrkvurj39.3cm/s LEFT VENTRICLE The left ventricle is normal size. There is normal left ventricular wall thickness. The left ventricu lar systolic function is normal. The ejection fraction is 50-55%. There is normal LV segmental wall m otion. Tissue Doppler imaging reveals abnormal left ventricular diastolic dysfunction. No left ventri marimar thrombus noted on this study. There is no ventricular septal defect visualized. There is no left ventricular aneurysm. There is no mass noted in the left ventricle. RIGHT VENTRICLE The right ventricle is normal size. There is normal right ventricular wall thickness. The right ventr icular systolic function is normal. ATRIA The left atrium is mildly dilated. The right atrium size is normal. The interatrial septum is intact with no evidence for an atrial septal defect or patent foramen ovale as noted on 2-D or Doppler imagi ng. AORTIC VALVE The aortic valve is mildly sclerotic. Doppler and Color Flow revealed no significant aortic regurgita tion. There is no significant aortic valvular stenosis. There is no aortic valvular vegetation. MITRAL VALVE The mitral valve is normal in structure and function. There is no evidence of mitral valve prolapse. There is no mitral valve stenosis. Doppler and Color-flow revealed trace to mild mitral regurgitation . TRICUSPID VALVE The tricuspid valve is normal in structure and function. Doppler and Color Flow revealed trace tricus pid regurgitation. There is no tricuspid valve prolapse or vegetation. There is no tricuspid valve st enosis. PULMONIC VALVE The pulmonary valve is normal in structure and function. Doppler and Color Flow revealed no pulmonic valvular regurgitation. There is no pulmonic valvular stenosis. GREAT VESSELS The aortic root is normal in size. The ascending aorta is normal in size. The pulmonary artery is nor mal. The IVC is normal in size and collapses >50% with inspiration. PERICARDIAL EFFUSION There is no pleural effusion. There is a trivial pericardial effusion. Critical Notification Critical Value: No <Conclusion> The left ventricle is normal size. The left ventricular systolic function is normal. The ejection fraction is 50-55%. There is normal LV segmental wall motion. Doppler and Color Flow revealed no significant aortic regurgitation. There is no significant aortic valvular stenosis. Doppler and Color-flow revealed trace to mild mitral regurgitation. Doppler and Color Flow revealed trace tricuspid regurgitation. There is a trivial pericardial effusion. Signed by : Sergio Espinoza MD Electronically Approved : 01/13/2021 13:22:42
--- NOTE | 2021-01-13 13:56 | PDOC4 ---
PROCEDURE Procedure EGD/remove FB Indication: Abd/chest pain suggestive of GERD. Meds: per anesthesia Findings: E--Grade A esophagitis at 35cm. G--Toothpick penetrating wall of stomach in antrum; removed with jumbo biopsy forceps. No hole after removal. D--Normal to second portion. Shahana. well. IMP: GERD, likely contributes to chest/abd pain. Impaled toothpick, removed. REC: Continue PPI. Will review CT, but don't think has free perforation from the too thpick. Clears today. JOSH SESAY MD Jan 13, 2021 13:56
[2021-01-13] MEDS ORDERED: PROPOFOL 10 MG/ML (20ML) VIAL. IV ONE (14:48)
[2021-01-13] MEDS: ATORVASTATIN CALCIUM 40 MG TABLET. PO SCH (20:15)
[2021-01-13] MEDS: traMADol 50 MG TABLET PO PRN (20:16)
[2021-01-13] MEDS: INSULIN GLARGINE SYRINGE. SQ SCH (21:00)
[2021-01-14] MEDS: IV NORMAL SALINE 1000ML BAG 1,000 ML IV SCH ×2 (01:30→21:30)
[2021-01-14 03:00] VITALS: BP 142/58
[2021-01-14] MEDS: LEVOTHYROXINE 100 MCG TABLET PO SCH (06:09)
[2021-01-14 07:00] VITALS: BP 149/65
[2021-01-14] MEDS: INSULIN LISPRO 300 UNITS/3 ML VIAL. SQ SCH ×6 (08:00→21:00)
[2021-01-14] MEDS: PANTOPRAZOLE 40 MG TABLET.DR. PO SCH (08:20)
[2021-01-14] MEDS: CHOLECALCIFEROL (VITAMIN D3) 1,000 UNIT TABLET PO SCH (08:20)
[2021-01-14] MEDS: SODIUM BICARBONATE 650 MG TABLET. PO SCH ×3 (08:20→22:44)
[2021-01-14] MEDS: SERTRALINE 50 MG TABLET. PO SCH (08:20)
[2021-01-14] MEDS: TOPIRAMATE 25 MG TABLET. PO SCH ×2 (08:20→22:44)
[2021-01-14] MEDS: ASPIRIN ENTERIC COATED 325 MG TABLET.DR. PO SCH (08:20)
[2021-01-14] MEDS: ALPRAZolam 0.25 MG TABLET PO SCH ×2 (08:20→22:41)
[2021-01-14] MEDS: MULTIVITAMIN I-VITE TABLET. PO SCH ×2 (08:21→22:41)
[2021-01-14] MEDS: ALLOPURINOL 100 MG TABLET. PO SCH (08:21)
[2021-01-14] MEDS: METOPROLOL SUCC 24HR ER 50 MG TAB.ER.24H. PO SCH (08:21)
--- NOTE | 2021-01-14 09:05 | PDOC ---
BRANDIE MCKEON REPORTING CONSULTANT 01/14/21 0905: SURGICAL PROGRESS NOTE DATE: 01/14/21 TIME: 09:04 Subjective feels much better tolerated breakfast Vital Signs Vital Signs Date Time Temp Pulse Resp B/P (MAP) Pulse Ox O2 Delivery O2 Flow Rate FiO2 01/14/21 08:21 67 142/58 01/14/21 03:00 97.9 16 99 Room Air 97.9 01/13/21 20:16 2.0 I&O Intake and Output 01/14/21 07:00 Intake Total 2163 ml Output Total 600 ml Balance 1563 ml Intake Oral 940 ml IV Total 1223 ml Output Urine Total 600 ml # Voids 1 # Bowel Movements 2 General: Alert, Oriented X3, Cooperative Abdomen: Soft, No tenderness Labs Laboratory Tests Test 01/12/21 11:40 01/12/21 16:40 01/12/21 20:42 01/13/21 04:15 Glucose (Fingerstick) 163 mg/dL (70-99) 93 mg/dL (70-99) 177 mg/dL (70-99) White Blood Count 14.8 x10^3/uL (4.0-11.0) Red Blood Count 3.29 x10^6/uL (3.50-5.40) Hemoglobin 8.8 g/dL (12.0-15.5) Hematocrit 27.9 % (36.0-47.0) Mean Corpuscular Volume 85 fL (79-100) Mean Corpuscular Hemoglobin 27 pg (25-35) Mean Corpuscular Hemoglobin Concent 32 g/dL (31-37) Red Cell Distribution Width 15.5 % (11.5-14.5) Platelet Count 179 x10^3/uL (140-400) Neutrophils (%) (Auto) 74 % (31-73) Lymphocytes (%) (Auto) 15 % (24-48) Monocytes (%) (Auto) 8 % (0-9) Eosinophils (%) (Auto) 3 % (0-3) Basophils (%) (Auto) 1 % (0-3) Neutrophils # (Auto) 11.0 x10^3/uL (1.8-7.7) Lymphocytes # (Auto) 2.2 x10^3/uL (1.0-4.8) Monocytes # (Auto) 1.1 x10^3/uL (0.0-1.1) Eosinophils # (Auto) 0.4 x10^3/uL (0.0-0.7) Basophils # (Auto) 0.1 x10^3/uL (0.0-0.2) Sodium Level 139 mmol/L (136-145) Potassium Level 4.6 mmol/L (3.5-5.1) Chloride Level 106 mmol/L (98-107) Carbon Dioxide Level 22 mmol/L (21-32) Anion Gap 11 (6-14) Blood Urea Nitrogen 55 mg/dL (7-20) Creatinine 2.7 mg/dL (0.6-1.0) Estimated GFR (Cockcroft-Gault) 17.0 Glucose Level 126 mg/dL (70-99) Calcium Level 8.5 mg/dL (8.5-10.1) Test 01/13/21 07:56 01/13/21 12:21 01/13/21 17:01 01/13/21 20:40 Glucose (Fingerstick) 105 mg/dL (70-99) 90 mg/dL (70-99) 256 mg/dL (70-99) 56 mg/dL (70-99) Test 01/14/21 08:05 Glucose (Fingerstick) 92 mg/dL (70-99) Laboratory Tests Test 01/13/21 12:21 01/13/21 17:01 01/13/21 20:40 01/14/21 08:05 Glucose (Fingerstick) 90 mg/dL (70-99) 256 mg/dL (70-99) 56 mg/dL (70-99) 92 mg/dL (70-99) Problem List Problems Medical Problems: (1) Acute kidney injury superimposed on chronic kidney disease Status: Acute (2) Uncontrolled hypertension Status: Acute Assessment/Plan noted egd-toothpick removed no surgical needs, will sign off Justicifation of Admission Dx: Justifications for Admission: Justification of Admission Dx: Yes KAYLEN JEAN BAPTISTE MD 01/14/21 1050: SURGICAL PROGRESS NOTE Assessment/Plan Agree with Aditi assessment plan BRANDIE MCKEON APRN Jan 14, 2021 09:05 KAYLEN JEAN BAPTISTE MD Jan 14, 2021 10:50
--- NOTE | 2021-01-14 10:25 | PDOC ---
IM PROGRESS NOTES- Subjective Subjective Complaints of pain in the epigastric area and upper abdomen. Denies any nausea or vomiting. Objective Vitals/I&O Vital Signs Date Time Temp Pulse Resp B/P (MAP) Pulse Ox O2 Delivery O2 Flow Rate FiO2 01/14/21 08:21 67 142/58 01/14/21 07:00 98.1 16 98 Room Air 98.1 01/13/21 20:16 2.0 I & O 01/13/21 01/13/21 01/14/21 15:00 23:00 07:00 Intake Total 0 ml 740 ml 1423 ml Output Total 600 ml Balance 0 ml 740 ml 823 ml Physical Exam Physical Exam General Appearance - alert and in no distress Chest - decreased breath sounds at bases Heart - S1 and S2 normal Abdomen - soft, non tender, patient complains of mild pain on palpation. There is no guarding or rigidity. Neurological - alert and oriented Musculoskeletal - generalized weakness Extremities - no edema Labs Laboratory Tests Test 01/13/21 12:21 01/13/21 17:01 01/13/21 20:40 01/14/21 08:05 Glucose (Fingerstick) 90 mg/dL (70-99) 256 mg/dL (70-99) H 56 mg/dL (70-99) L 92 mg/dL (70-99) Meds Current Medications Medications (Trade) Dose Ordered Sig/Mindy Route PRN Reason Start Time Stop Time Status Last Admin Dose Admin Amlodipine Besylate (Norvasc) 10 mg DAILY PO 01/14/21 09:00 01/14/21 08:21 Ringer's Solution 1,000 ml @ 50 mls/hr Q20H IV 01/13/21 11:30 01/13/21 11:31 DC 01/13/21 13:36 Assessment Assessment Problems Medical Problems: (1) Acute kidney injury superimposed on chronic kidney disease Status: Acute (2) Uncontrolled hypertension Status: Acute FINAL IMPRESSION: 1. Retrosternal pain going to both shoulders. The patient has known history of coronary artery disease, rule out acute cardiac event. 2. Epigastric pain, rule out gallbladder disease. Gastroesophageal reflux disease causing the symptoms. 3. Chronic kidney disease stage 3B. Sees Renal. 4. Anemia of chronic disease. 5. Coronary artery disease, history of previous cardiac stents. 6. Diabetes, insulin-dependent. 7. Hypertension. 8. Hyperlipidemia. 9. Hypothyroidism. PLAN: sono abd -neg ct scan abd and pelvis -ve Patient had EGD done yesterday and was noted to have a toothpick that was removed by Dr. Ching. CT scan was negative for perforation and he also spoke to the radiologist. He wants to advance diet today if stable She continues to have some abdominal pain. Patient states that she has dentures and has not used any toothpick for 50 years. Her does use toothpicks. WBC count remains elevated at 14.8 yesterday. Patient has difficult veins and so far lab has not been able to draw blood. I have advised the staff to call me if WBC count remains elevated. Then consider antibiotics. If stable then will monitor without antibiotics. Recheck labs in a.m. Surgical consult reviewed. No plans for any surgery. Diabetes mellitus-not controlled. Patient had an episode of hypoglycemia. Decrease Humalog as well as Lantus insulin. Monitor blood sugars. Plan Plan For more details regarding further plans, please refer to the orders. Justifications for Admission Other Justification ASHLEY GONZALEZ MD Jan 14, 2021 10:25
[2021-01-14 11:00] VITALS: BP 143/46
[2021-01-14 12:24] LABS: BASO % 1 % (0-3); EOS # 0.4 x10^3/uL (0.0-0.7); EOS % 5 % (0-3); HEMATOCRIT 29.9 % (36.0-47.0); HEMOGLOBIN 9.5 g/dL (12.0-15.5); LYMPH # 1.2 x10^3/uL (1.0-4.8); LYMPH % 16 % (24-48); MEAN CORPUSCULAR HEMOGLOBIN 27 pg (25-35); MEAN CORPUSCULAR HGB CONC 32 g/dL (31-37); MEAN CORPUSCULAR VOLUME 84 fL (79-100); MONO # 0.6 x10^3/uL (0.0-1.1); MONO % 8 % (0-9); NEUT # 5.7 x10^3/uL (1.8-7.7); NEUT % 72 % (31-73); PLATELET COUNT 197 x10^3/uL (140-400); RED BLOOD COUNT 3.55 x10^6/uL (3.50-5.40); RED CELL DISTRIBUTION WIDTH 15.2 % (11.5-14.5); WHITE BLOOD COUNT 7.9 x10^3/uL (4.0-11.0)
[2021-01-14 12:36] LABS: CALCIUM 8.3 mg/dL (8.5-10.1); CREATININE 2.5 mg/dL (0.6-1.0); GFR 18.6; POTASSIUM 5.2 mmol/L (3.5-5.1)
--- NOTE | 2021-01-14 12:42 | PDOC ---
G I PROGRESS NOTE Subjective Feels much better with toothpick out. Denies use of these. Physical Exam Lungs clear anteriorly. RRR Abdomen soft, mild epigastric tenderness. Review of Relevant I have reviewed the following items hanna (where applicable) has been applied. Labs Laboratory Tests Test 01/12/21 16:40 01/12/21 20:42 01/13/21 04:15 01/13/21 07:56 Glucose (Fingerstick) 93 mg/dL (70-99) 177 mg/dL (70-99) 105 mg/dL (70-99) White Blood Count 14.8 x10^3/uL (4.0-11.0) Red Blood Count 3.29 x10^6/uL (3.50-5.40) Hemoglobin 8.8 g/dL (12.0-15.5) Hematocrit 27.9 % (36.0-47.0) Mean Corpuscular Volume 85 fL (79-100) Mean Corpuscular Hemoglobin 27 pg (25-35) Mean Corpuscular Hemoglobin Concent 32 g/dL (31-37) Red Cell Distribution Width 15.5 % (11.5-14.5) Platelet Count 179 x10^3/uL (140-400) Neutrophils (%) (Auto) 74 % (31-73) Lymphocytes (%) (Auto) 15 % (24-48) Monocytes (%) (Auto) 8 % (0-9) Eosinophils (%) (Auto) 3 % (0-3) Basophils (%) (Auto) 1 % (0-3) Neutrophils # (Auto) 11.0 x10^3/uL (1.8-7.7) Lymphocytes # (Auto) 2.2 x10^3/uL (1.0-4.8) Monocytes # (Auto) 1.1 x10^3/uL (0.0-1.1) Eosinophils # (Auto) 0.4 x10^3/uL (0.0-0.7) Basophils # (Auto) 0.1 x10^3/uL (0.0-0.2) Sodium Level 139 mmol/L (136-145) Potassium Level 4.6 mmol/L (3.5-5.1) Chloride Level 106 mmol/L (98-107) Carbon Dioxide Level 22 mmol/L (21-32) Anion Gap 11 (6-14) Blood Urea Nitrogen 55 mg/dL (7-20) Creatinine 2.7 mg/dL (0.6-1.0) Estimated GFR (Cockcroft-Gault) 17.0 Glucose Level 126 mg/dL (70-99) Calcium Level 8.5 mg/dL (8.5-10.1) Test 01/13/21 12:21 01/13/21 17:01 01/13/21 20:40 01/14/21 08:05 Glucose (Fingerstick) 90 mg/dL (70-99) 256 mg/dL (70-99) 56 mg/dL (70-99) 92 mg/dL (70-99) Test 01/14/21 11:24 01/14/21 11:55 Glucose (Fingerstick) 178 mg/dL (70-99) White Blood Count 7.9 x10^3/uL (4.0-11.0) Red Blood Count 3.55 x10^6/uL (3.50-5.40) Hemoglobin 9.5 g/dL (12.0-15.5) Hematocrit 29.9 % (36.0-47.0) Mean Corpuscular Volume 84 fL (79-100) Mean Corpuscular Hemoglobin 27 pg (25-35) Mean Corpuscular Hemoglobin Concent 32 g/dL (31-37) Red Cell Distribution Width 15.2 % (11.5-14.5) Platelet Count 197 x10^3/uL (140-400) Neutrophils (%) (Auto) 72 % (31-73) Lymphocytes (%) (Auto) 16 % (24-48) Monocytes (%) (Auto) 8 % (0-9) Eosinophils (%) (Auto) 5 % (0-3) Basophils (%) (Auto) 1 % (0-3) Neutrophils # (Auto) 5.7 x10^3/uL (1.8-7.7) Lymphocytes # (Auto) 1.2 x10^3/uL (1.0-4.8) Monocytes # (Auto) 0.6 x10^3/uL (0.0-1.1) Eosinophils # (Auto) 0.4 x10^3/uL (0.0-0.7) Basophils # (Auto) 0.0 x10^3/uL (0.0-0.2) Laboratory Tests Test 01/13/21 17:01 01/13/21 20:40 01/14/21 08:05 01/14/21 11:24 Glucose (Fingerstick) 256 mg/dL (70-99) 56 mg/dL (70-99) 92 mg/dL (70-99) 178 mg/dL (70-99) Test 01/14/21 11:55 White Blood Count 7.9 x10^3/uL (4.0-11.0) Red Blood Count 3.55 x10^6/uL (3.50-5.40) Hemoglobin 9.5 g/dL (12.0-15.5) Hematocrit 29.9 % (36.0-47.0) Mean Corpuscular Volume 84 fL (79-100) Mean Corpuscular Hemoglobin 27 pg (25-35) Mean Corpuscular Hemoglobin Concent 32 g/dL (31-37) Red Cell Distribution Width 15.2 % (11.5-14.5) Platelet Count 197 x10^3/uL (140-400) Neutrophils (%) (Auto) 72 % (31-73) Lymphocytes (%) (Auto) 16 % (24-48) Monocytes (%) (Auto) 8 % (0-9) Eosinophils (%) (Auto) 5 % (0-3) Basophils (%) (Auto) 1 % (0-3) Neutrophils # (Auto) 5.7 x10^3/uL (1.8-7.7) Lymphocytes # (Auto) 1.2 x10^3/uL (1.0-4.8) Monocytes # (Auto) 0.6 x10^3/uL (0.0-1.1) Eosinophils # (Auto) 0.4 x10^3/uL (0.0-0.7) Basophils # (Auto) 0.0 x10^3/uL (0.0-0.2) Vitals/I & O Vital Sign - Last 24 Hours 01/13/21 01/13/21 01/13/21 01/13/21 13:33 13:37 13:52 14:00 Temp 97.4 97.8 97.8 97.4 97.8 97.8 Pulse 76 70 72 Resp 20 20 20 B/P (MAP) 126/71 142/74 Pulse Ox 96 96 97 O2 Delivery Room Air Nasal Cannula Nasal Cannula O2 Flow Rate 2 2 01/13/21 01/13/21 01/13/21 01/13/21 14:10 15:00 19:00 20:00 Temp 97.8 98.2 98.1 97.8 98.2 98.1 Pulse 71 74 70 Resp 20 18 18 B/P (MAP) 158/72 144/60 (88) 159/57 (91) Pulse Ox 97 97 98 O2 Delivery Nasal Cannula Room Air Room Air Room Air O2 Flow Rate 2 01/13/21 01/13/21 01/13/21 01/14/21 20:16 20:46 23:00 03:00 Temp 98.0 97.9 98.0 97.9 Pulse 69 67 Resp 18 16 B/P (MAP) 133/66 (88) 142/58 (86) Pulse Ox 98 96 99 O2 Delivery Room Air Room Air Room Air Room Air O2 Flow Rate 2.0 01/14/21 01/14/21 01/14/21 01/14/21 07:00 08:00 08:21 08:21 Temp 98.1 98.1 Pulse 72 67 67 Resp 16 B/P (MAP) 149/65 (93) 142/58 142/58 Pulse Ox 98 O2 Delivery Room Air Room Air 01/14/21 11:00 Temp 98.0 98.0 Pulse 75 Resp 16 B/P (MAP) 143/46 (78) Pulse Ox 99 O2 Delivery Room Air Intake and Output 01/13/21 01/13/21 01/14/21 15:00 23:00 07:00 Intake Total 0 ml 740 ml 1423 ml Output Total 600 ml Balance 0 ml 740 ml 823 ml Problem List Problems Medical Problems: (1) Acute kidney injury superimposed on chronic kidney disease Status: Acute (2) Uncontrolled hypertension Status: Acute Assessment GERD Ingested FB (toothpick), resolved. Plan of Care Note Continue PPI, diet. If persistent issues, consider repeat CT. Justicifation of Admission Dx: Justifications for Admission: Justification of Admission Dx: Yes JOSH SESAY MD Jan 14, 2021 12:42
--- NOTE | 2021-01-14 14:39 | PDOC ---
PROGRESS NOTES Date of Service: DATE: 01/14/21 TIME: 14:37 Subjective Subjective Chest pain improved but continues to complain of mild ' soreness' Objective Objective Vital Signs Date Time Temp Pulse Resp B/P (MAP) Pulse Ox O2 Delivery O2 Flow Rate FiO2 01/14/21 11:00 98.0 75 16 143/46 (78) 99 Room Air 98.0 01/13/21 20:16 2.0 Intake and Output 01/14/21 07:00 Intake Total 2163 ml Output Total 600 ml Balance 1563 ml Intake Oral 940 ml IV Total 1223 ml Output Urine Total 600 ml # Voids 1 # Bowel Movements 2 Physical Exam Abdomen: Soft, No tenderness Heart: Regular rate, Normal S1, Normal S2, No murmurs Extremities: No clubbing, No cyanosis General: Alert, Oriented X3, Cooperative HEENT: PERRLA, Mucous membr. moist/pink Lungs: Clear to auscultation, Normal air movement MUSCULOSKELETAL: Osteoarthritic changes both hands Neuro: Normal gait, Normal speech Psych/Mental Status: Mental status NL, Mood NL Skin: No rashes, No breakdown Assessment Assessment 1. Atypical CP: possibly GI. Myocardial infarction has been ruled out. 2D echo showed normal LV systolic function without any wall motion abnormalities. 2. Abdominal pain; GI team following 3. CAD: past stent to LAD, appears to be stable clinically. Plan for outpatient ischemic evaluation. 4. HTN: Better controlled 5. HLP: Continue statins 6. COPD, stable 7. ANASTASIIA on CKD3, per IM Plan Plan of Care Problems Medical Problems: (1) Acute kidney injury superimposed on chronic kidney disease Status: Acute (2) Uncontrolled hypertension Status: Acute Comment Review of Relevant I have reviewed the following items hanna (where applicable) has been applied. Labs Laboratory Tests Test 01/13/21 17:01 01/13/21 20:40 01/14/21 08:05 01/14/21 11:24 Glucose (Fingerstick) 256 mg/dL (70-99) 56 mg/dL (70-99) 92 mg/dL (70-99) 178 mg/dL (70-99) Test 01/14/21 11:55 White Blood Count 7.9 x10^3/uL (4.0-11.0) Red Blood Count 3.55 x10^6/uL (3.50-5.40) Hemoglobin 9.5 g/dL (12.0-15.5) Hematocrit 29.9 % (36.0-47.0) Mean Corpuscular Volume 84 fL (79-100) Mean Corpuscular Hemoglobin 27 pg (25-35) Mean Corpuscular Hemoglobin Concent 32 g/dL (31-37) Red Cell Distribution Width 15.2 % (11.5-14.5) Platelet Count 197 x10^3/uL (140-400) Neutrophils (%) (Auto) 72 % (31-73) Lymphocytes (%) (Auto) 16 % (24-48) Monocytes (%) (Auto) 8 % (0-9) Eosinophils (%) (Auto) 5 % (0-3) Basophils (%) (Auto) 1 % (0-3) Neutrophils # (Auto) 5.7 x10^3/uL (1.8-7.7) Lymphocytes # (Auto) 1.2 x10^3/uL (1.0-4.8) Monocytes # (Auto) 0.6 x10^3/uL (0.0-1.1) Eosinophils # (Auto) 0.4 x10^3/uL (0.0-0.7) Basophils # (Auto) 0.0 x10^3/uL (0.0-0.2) Sodium Level 138 mmol/L (136-145) Potassium Level 5.2 mmol/L (3.5-5.1) Chloride Level 105 mmol/L (98-107) Carbon Dioxide Level 25 mmol/L (21-32) Anion Gap 8 (6-14) Blood Urea Nitrogen 53 mg/dL (7-20) Creatinine 2.5 mg/dL (0.6-1.0) Estimated GFR (Cockcroft-Gault) 18.6 Glucose Level 204 mg/dL (70-99) Calcium Level 8.3 mg/dL (8.5-10.1) Medications Current Medications Amlodipine Besylate (Norvasc) 10 mg DAILY PO Last administered on 01/14/21at 08:21; Start 01/14/21 at 09:00 Insulin Glargine (Lantus Syringe) 24 unit HS SQ ; Start 01/14/21 at 21:00 Insulin Human Lispro (HumaLOG) 10 units TIDWMEALS SQ Last administered on 01/14/21at 12:47; Start 01/14/21 at 12:00 Propofol (Diprivan) 200 mg STK-MED ONCE IV ; Start 01/13/21 at 14:48; Stop 01/13/21 at 14:48; Status DC Vitals/I & O Vital Sign - Last 24 Hours 01/13/21 01/13/21 01/13/21 01/13/21 15:00 19:00 20:00 20:16 Temp 98.2 98.1 98.2 98.1 Pulse 74 70 Resp 18 18 B/P (MAP) 144/60 (88) 159/57 (91) Pulse Ox 97 98 98 O2 Delivery Room Air Room Air Room Air Room Air O2 Flow Rate 2.0 01/13/21 01/13/21 01/14/21 01/14/21 20:46 23:00 03:00 07:00 Temp 98.0 97.9 98.1 98.0 97.9 98.1 Pulse 69 67 72 Resp 18 16 16 B/P (MAP) 133/66 (88) 142/58 (86) 149/65 (93) Pulse Ox 96 99 98 O2 Delivery Room Air Room Air Room Air Room Air 01/14/21 01/14/21 01/14/21 01/14/21 08:00 08:21 08:21 11:00 Temp 98.0 98.0 Pulse 67 67 75 Resp 16 B/P (MAP) 142/58 142/58 143/46 (78) Pulse Ox 99 O2 Delivery Room Air Room Air Intake and Output 01/13/21 01/13/21 01/14/21 15:00 23:00 07:00 Intake Total 0 ml 740 ml 1423 ml Output Total 600 ml Balance 0 ml 740 ml 823 ml LATOSHA FINK MD Jan 14, 2021 14:39
[2021-01-14 15:00] VITALS: BP 162/67
[2021-01-14 19:45] VITALS: BP 131/64
[2021-01-14] MEDS ORDERED: INSULIN GLARGINE SYRINGE. SQ SCH (21:00)
[2021-01-14] MEDS: ATORVASTATIN CALCIUM 40 MG TABLET. PO SCH (22:43)
[2021-01-14 23:05] VITALS: BP 142/60
[2021-01-15 03:30] VITALS: BP 120/62
[2021-01-15] MEDS: LEVOTHYROXINE 100 MCG TABLET PO SCH (06:10)
[2021-01-15 07:00] VITALS: BP 165/57
[2021-01-15] MEDS: INSULIN LISPRO 300 UNITS/3 ML VIAL. SQ SCH ×4 (08:00→12:00)
[2021-01-15] MEDS: SODIUM BICARBONATE 650 MG TABLET. PO SCH (08:02)
[2021-01-15] MEDS: ALPRAZolam 0.25 MG TABLET PO SCH (08:02)
[2021-01-15] MEDS: MULTIVITAMIN I-VITE TABLET. PO SCH (08:02)
[2021-01-15] MEDS: ASPIRIN ENTERIC COATED 325 MG TABLET.DR. PO SCH (08:03)
[2021-01-15] MEDS: CHOLECALCIFEROL (VITAMIN D3) 1,000 UNIT TABLET PO SCH (08:03)
[2021-01-15] MEDS: PANTOPRAZOLE 40 MG TABLET.DR. PO SCH (08:03)
[2021-01-15] MEDS: METOPROLOL SUCC 24HR ER 50 MG TAB.ER.24H. PO SCH (08:03)
[2021-01-15] MEDS: ALLOPURINOL 100 MG TABLET. PO SCH (08:04)
[2021-01-15] MEDS: TOPIRAMATE 25 MG TABLET. PO SCH (08:06)
[2021-01-15] MEDS: SERTRALINE 50 MG TABLET. PO SCH (08:07)
[2021-01-15 10:52] LABS: BASO % 1 % (0-3); EOS # 0.4 x10^3/uL (0.0-0.7); EOS % 5 % (0-3); HEMATOCRIT 27.8 % (36.0-47.0); HEMOGLOBIN 8.9 g/dL (12.0-15.5); LYMPH # 1.7 x10^3/uL (1.0-4.8); LYMPH % 22 % (24-48); MEAN CORPUSCULAR HEMOGLOBIN 27 pg (25-35); MEAN CORPUSCULAR HGB CONC 32 g/dL (31-37); MEAN CORPUSCULAR VOLUME 84 fL (79-100); MONO # 0.6 x10^3/uL (0.0-1.1); MONO % 8 % (0-9); NEUT # 4.8 x10^3/uL (1.8-7.7); NEUT % 64 % (31-73); PLATELET COUNT 195 x10^3/uL (140-400); RED BLOOD COUNT 3.31 x10^6/uL (3.50-5.40); RED CELL DISTRIBUTION WIDTH 15.6 % (11.5-14.5); WHITE BLOOD COUNT 7.5 x10^3/uL (4.0-11.0)
[2021-01-15 11:00] VITALS: BP 150/61
[2021-01-15 11:02] LABS: CALCIUM 8.4 mg/dL (8.5-10.1); CREATININE 2.7 mg/dL (0.6-1.0); POTASSIUM 4.4 mmol/L (3.5-5.1)
--- NOTE | 2021-01-15 11:58 | PDOC ---
PROGRESS NOTES Date of Service: DATE: 01/15/21 TIME: 11:56 Subjective Subjective feels good ,ready to go home today Objective Objective Vital Signs Date Time Temp Pulse Resp B/P (MAP) Pulse Ox O2 Delivery O2 Flow Rate FiO2 01/15/21 08:03 85 165/57 01/15/21 08:00 Room Air 01/15/21 07:00 97.4 18 97 97.4 Intake and Output 01/15/21 07:00 Intake Total 1200 ml Output Total 1950 ml Balance -750 ml Intake Oral 1200 ml Output Urine Total 1950 ml # Bowel Movements 1 Physical Exam Abdomen: Soft, No tenderness Heart: Regular rate, Normal S1, Normal S2, No murmurs Extremities: No clubbing, No cyanosis General: Alert, Oriented X3, Cooperative HEENT: PERRLA, Mucous membr. moist/pink Lungs: Clear to auscultation, Normal air movement MUSCULOSKELETAL: Osteoarthritic changes both hands Neuro: Normal gait, Normal speech Psych/Mental Status: Mental status NL, Mood NL Skin: No rashes, No breakdown Diagnosis Problem List Problems Medical Problems: (1) Acute kidney injury superimposed on chronic kidney disease Status: Acute (2) Uncontrolled hypertension Status: Acute Assessment Assessment Problems Medical Problems: (1) Acute kidney injury superimposed on chronic kidney disease Status: Acute (2) Uncontrolled hypertension Status: Acute FINAL IMPRESSION: 1. Retrosternal pain going to both shoulders. The patient has known history of coronary artery disease, rule out acute cardiac event. 2. Epigastric pain, rule out gallbladder disease. Gastroesophageal reflux disease causing the symptoms. 3. Chronic kidney disease stage 3B. Sees Renal. 4. Anemia of chronic disease. 5. Coronary artery disease, history of previous cardiac stents. 6. Diabetes, insulin-dependent. 7. Hypertension. 8. Hyperlipidemia. 9. Hypothyroidism. PLAN: cbc good, cr 2.7 base line tolerating diet. d/c home today sono abd -neg ct scan abd and pelvis -ve Patient had EGD done yesterday and was noted to have a toothpick that was removed by Dr. Ching. CT scan was negative for perforation and he also spoke to the radiologist. Plan Plan of Care Problems Medical Problems: (1) Acute kidney injury superimposed on chronic kidney disease Status: Acute (2) Uncontrolled hypertension Status: Acute Comment Review of Relevant I have reviewed the following items hanna (where applicable) has been applied. Labs Laboratory Tests Test 10/2/21 16:42 01/14/21 21:15 01/15/21 07:47 01/15/21 10:10 Glucose (Fingerstick) 132 mg/dL (70-99) 70 mg/dL (70-99) 131 mg/dL (70-99) White Blood Count 7.5 x10^3/uL (4.0-11.0) Red Blood Count 3.31 x10^6/uL (3.50-5.40) Hemoglobin 8.9 g/dL (12.0-15.5) Hematocrit 27.8 % (36.0-47.0) Mean Corpuscular Volume 84 fL (79-100) Mean Corpuscular Hemoglobin 27 pg (25-35) Mean Corpuscular Hemoglobin Concent 32 g/dL (31-37) Red Cell Distribution Width 15.6 % (11.5-14.5) Platelet Count 195 x10^3/uL (140-400) Neutrophils (%) (Auto) 64 % (31-73) Lymphocytes (%) (Auto) 22 % (24-48) Monocytes (%) (Auto) 8 % (0-9) Eosinophils (%) (Auto) 5 % (0-3) Basophils (%) (Auto) 1 % (0-3) Neutrophils # (Auto) 4.8 x10^3/uL (1.8-7.7) Lymphocytes # (Auto) 1.7 x10^3/uL (1.0-4.8) Monocytes # (Auto) 0.6 x10^3/uL (0.0-1.1) Eosinophils # (Auto) 0.4 x10^3/uL (0.0-0.7) Basophils # (Auto) 0.0 x10^3/uL (0.0-0.2) Sodium Level 139 mmol/L (136-145) Potassium Level 4.4 mmol/L (3.5-5.1) Chloride Level 106 mmol/L (98-107) Carbon Dioxide Level 23 mmol/L (21-32) Anion Gap 10 (6-14) Blood Urea Nitrogen 55 mg/dL (7-20) Creatinine 2.7 mg/dL (0.6-1.0) Estimated GFR (Cockcroft-Gault) 17.0 Glucose Level 174 mg/dL (70-99) Calcium Level 8.4 mg/dL (8.5-10.1) Test 01/15/21 11:43 Glucose (Fingerstick) 153 mg/dL (70-99) Medications Current Medications Insulin Glargine (Lantus Syringe) 24 unit HS SQ Last administered on 01/14/21at 23:04; Start 01/14/21 at 21:00 Insulin Human Lispro (HumaLOG) 10 units TIDWMEALS SQ Last administered on 01/15/21at 08:11; Start 01/14/21 at 12:00 Vitals/I & O Vital Sign - Last 24 Hours 01/14/21 01/14/21 01/14/21 01/14/21 15:00 19:45 20:00 23:05 Temp 98.1 98.0 98.0 98.1 98.0 98.0 Pulse 79 75 71 Resp 16 18 18 B/P (MAP) 162/67 (98) 131/64 (86) 142/60 (87) Pulse Ox 97 98 97 O2 Delivery Room Air Room Air Room Air Room Air 01/15/21 01/15/21 01/15/21 01/15/21 03:30 07:00 08:00 08:02 Temp 98.2 97.4 98.2 97.4 Pulse 72 72 85 Resp 18 18 B/P (MAP) 120/62 (81) 165/57 (93) 165/57 Pulse Ox 96 97 O2 Delivery Room Air Room Air Room Air 01/15/21 08:03 Pulse 85 B/P (MAP) 165/57 Intake and Output 01/14/21 01/14/21 01/15/21 15:00 23:00 07:00 Intake Total 720 ml 480 ml Output Total 850 ml 300 ml 800 ml Balance -850 ml 420 ml -320 ml Justifications for Admission Other Justification VIANEY HOLT MD Jan 15, 2021 11:58
[2021-01-15] MEDS ORDERED: PANT40TA77 PO (12:03)
--- NOTE | 2021-01-15 12:30 | PDOC ---
PROGRESS NOTES Date of Service: DATE: 01/15/21 TIME: 12:28 Subjective Subjective Patient had EGD yesterday and was noted to have toothpick in her stomach. CT scan negative for perforation. Continues to complain of mild aching pain in her chest Objective Objective Vital Signs Date Time Temp Pulse Resp B/P (MAP) Pulse Ox O2 Delivery O2 Flow Rate FiO2 01/15/21 08:03 85 165/57 01/15/21 08:00 Room Air 01/15/21 07:00 97.4 18 97 97.4 Intake and Output 01/15/21 07:00 Intake Total 1200 ml Output Total 1950 ml Balance -750 ml Intake Oral 1200 ml Output Urine Total 1950 ml # Bowel Movements 1 Physical Exam Abdomen: Soft, No tenderness Heart: Regular rate, Normal S1, Normal S2, No murmurs Extremities: No clubbing, No cyanosis General: Alert, Oriented X3, Cooperative HEENT: PERRLA, Mucous membr. moist/pink Lungs: Clear to auscultation, Normal air movement MUSCULOSKELETAL: Osteoarthritic changes both hands Neuro: Normal gait, Normal speech Psych/Mental Status: Mental status NL, Mood NL Skin: No rashes, No breakdown Assessment Assessment 1. Atypical CP: possibly GI. EGD results with toothpick noted above. Myocardial infarction has been ruled out. 2D echo showed normal LV systolic function without any wall motion abnormalities. 2. Abdominal pain; EGD showed toothpick in stomach but CT scan of abdomen withou t any perforation. GI team following 3. CAD: past stent to LAD, appears to be stable clinically. Plan for outpatient ischemic evaluation. 4. HTN: Better controlled 5. HLP: Continue statins 6. COPD, stable 7. ANASTASIIA on CKD3, per IM Okay for DC from cardiac standpoint. Plan Plan of Care Problems Medical Problems: (1) Acute kidney injury superimposed on chronic kidney disease Status: Acute (2) Uncontrolled hypertension Status: Acute Comment Review of Relevant I have reviewed the following items hanna (where applicable) has been applied. Labs Laboratory Tests Test 01/14/21 16:42 01/14/21 21:15 01/15/21 07:47 01/15/21 10:10 Glucose (Fingerstick) 132 mg/dL (70-99) 70 mg/dL (70-99) 131 mg/dL (70-99) White Blood Count 7.5 x10^3/uL (4.0-11.0) Red Blood Count 3.31 x10^6/uL (3.50-5.40) Hemoglobin 8.9 g/dL (12.0-15.5) Hematocrit 27.8 % (36.0-47.0) Mean Corpuscular Volume 84 fL (79-100) Mean Corpuscular Hemoglobin 27 pg (25-35) Mean Corpuscular Hemoglobin Concent 32 g/dL (31-37) Red Cell Distribution Width 15.6 % (11.5-14.5) Platelet Count 195 x10^3/uL (140-400) Neutrophils (%) (Auto) 64 % (31-73) Lymphocytes (%) (Auto) 22 % (24-48) Monocytes (%) (Auto) 8 % (0-9) Eosinophils (%) (Auto) 5 % (0-3) Basophils (%) (Auto) 1 % (0-3) Neutrophils # (Auto) 4.8 x10^3/uL (1.8-7.7) Lymphocytes # (Auto) 1.7 x10^3/uL (1.0-4.8) Monocytes # (Auto) 0.6 x10^3/uL (0.0-1.1) Eosinophils # (Auto) 0.4 x10^3/uL (0.0-0.7) Basophils # (Auto) 0.0 x10^3/uL (0.0-0.2) Sodium Level 139 mmol/L (136-145) Potassium Level 4.4 mmol/L (3.5-5.1) Chloride Level 106 mmol/L (98-107) Carbon Dioxide Level 23 mmol/L (21-32) Anion Gap 10 (6-14) Blood Urea Nitrogen 55 mg/dL (7-20) Creatinine 2.7 mg/dL (0.6-1.0) Estimated GFR (Cockcroft-Gault) 17.0 Glucose Level 174 mg/dL (70-99) Calcium Level 8.4 mg/dL (8.5-10.1) Test 01/15/21 11:43 Glucose (Fingerstick) 153 mg/dL (70-99) Medications Current Medications Insulin Glargine (Lantus Syringe) 24 unit HS SQ Last administered on 01/14/21at 23:04; Start 01/14/21 at 21:00 Vitals/I & O Vital Sign - Last 24 Hours 01/14/21 01/14/21 01/14/21 01/14/21 15:00 19:45 20:00 23:05 Temp 98.1 98.0 98.0 98.1 98.0 98.0 Pulse 79 75 71 Resp 16 18 18 B/P (MAP) 162/67 (98) 131/64 (86) 142/60 (87) Pulse Ox 97 98 97 O2 Delivery Room Air Room Air Room Air Room Air 01/15/21 01/15/21 01/15/21 01/15/21 03:30 07:00 08:00 08:02 Temp 98.2 97.4 98.2 97.4 Pulse 72 72 85 Resp 18 18 B/P (MAP) 120/62 (81) 165/57 (93) 165/57 Pulse Ox 96 97 O2 Delivery Room Air Room Air Room Air 01/15/21 08:03 Pulse 85 B/P (MAP) 165/57 Intake and Output 01/14/21 01/14/21 01/15/21 15:00 23:00 07:00 Intake Total 720 ml 480 ml Output Total 850 ml 300 ml 800 ml Balance -850 ml 420 ml -320 ml LATOSHA FINK MD Jan 15, 2021 12:30
--- NOTE | 2021-01-15 14:20 | NUR ---
DISCHARGED PATIENT TO HOME. DISCHARGE INSTRUCTIONS GIVEN. PIV AND HEART MONITOR REMOVED. ESCORTED PATIENT OFF UNIT PER WHEELCHAIR INTO A PRIVATE VEHICLE.
--- NOTE | 2021-01-23 23:14 | PDOC ---
Provider Note Date of Service: DATE: 01/23/21 TIME: 23:13 Provider Note discharge summary dictated.#[id number]. Justifications for Admission Other Justification VIANEY HOLT MD Jan 23, 2021 23:14
--- NOTE | 2021-01-24 05:05 | DS ---
DATE OF DISCHARGE: 01/15/2021 REASON FOR ADMISSION TO THE HOSPITAL: Epigastric pain and retrosternal pain. The patient has a known history of coronary artery disease, history of previous cardiac stents. CONSULTATIONS: 1. Cardiology, Dr. Abdi. 2. Dr. Ching, GI. 3. Dr. Do, Surgery. PROCEDURES DONE: 1. Echocardiogram. 2. EGD. 3. CT scan of the abdomen and pelvis. 4. Ultrasound of the abdomen. COMPLICATIONS NOTED: None. HOSPITAL COURSE: The patient is a 80-year-old female with history of coronary artery disease, previous stent, came in with retrosternal and epigastric pain. Acute IL was ruled out. CT scan of the abdomen, no acute abnormality. Sigmoid diverticulosis. The patient had an ultrasound of the abdomen. No evidence of gallstones. Because of persistent abdominal pain, the patient had EGD. EGD showed toothpick penetrating the wall of the stomach in the antrum and there was no hole after removal and the patient was observed for 24 hours, started on diet, tolerating the diet. White count was coming down from 17,000 to less than 10,000 and the patient did tolerate diet. She was observed for 48 hours and discharged. FINAL IMPRESSION: 1. secondary to toothpick penetrating the wall of the stomach in the antrum. No obvious perforation. 2. Coronary artery disease, history of previous stent. 3. Diabetes. 4. Chronic kidney disease, stage IV. OTHER SIGNIFICANT DATA: Hemoglobin around 9. White count 14, came down to 7. Platelets were adequate. Creatinine 2.7, baseline. COVID test negative. Urine negative for infection and chest x-ray was negative. DISPOSITION: The patient was discharged home. Follow up in the office. Protonix 40 mg daily for 2 months. LILIA/ANN MARIE/HAKEEM DR: LILIA/vandana TID: [id number]
== END 2021-01-15 14:20 | disposition home or self-care (01) | DRG 392 ==
LOC: ER 14:48 → ED HOLD 19:26 → 6 SOUTH 23:29
PROVIDERS: ADMIT Internal Medicine; ATTEND Internal Medicine
PROC: 0DC68ZZ Extirpation of Matter from Stomach, Via Natural or Artificial Opening Endoscopic (ICD-10-PCS; principal; 2021-01-11)
DX: K21.00 Gastro-esophageal reflux disease with esophagitis, without bleeding (principal); N17.9 Acute kidney failure, unspecified; K57.90 Diverticulosis of intestine, part unspecified, without perforation or abscess without bleeding; I12.9 Hypertensive chronic kidney disease with stage 1 through stage 4 chronic kidney disease, or unspecified chronic kidney disease; C44.90 Unspecified malignant neoplasm of skin, unspecified; D63.8 Anemia in other chronic diseases classified elsewhere; E03.9 Hypothyroidism, unspecified; E11.22 Type 2 diabetes mellitus with diabetic chronic kidney disease; E11.43 Type 2 diabetes mellitus with diabetic autonomic (poly)neuropathy; E78.00 Pure hypercholesterolemia, unspecified; E78.5 Hyperlipidemia, unspecified; F41.9 Anxiety disorder, unspecified; G47.33 Obstructive sleep apnea (adult) (pediatric); I25.10 Atherosclerotic heart disease of native coronary artery without angina pectoris; I25.2 Old myocardial infarction; J44.9 Chronic obstructive pulmonary disease, unspecified; K59.00 Constipation, unspecified; N18.32 Chronic kidney disease, stage 3b; R13.10 Dysphagia, unspecified; Z79.4 Long term (current) use of insulin; Z79.82 Long term (current) use of aspirin; Z83.3 Family history of diabetes mellitus; Z85.828 Personal history of other malignant neoplasm of skin; Z86.16 Personal history of COVID-19; Z87.891 Personal history of nicotine dependence; Z90.49 Acquired absence of other specified parts of digestive tract; Z90.710 Acquired absence of both cervix and uterus; Z95.5 Presence of coronary angioplasty implant and graft; Z96.612 Presence of left artificial shoulder joint; M10.9 Gout, unspecified; M19.90 Unspecified osteoarthritis, unspecified site; E11.649 Type 2 diabetes mellitus with hypoglycemia without coma
CPT/HCPCS: 36415; 43247; 71045; 74176; 76700; 80048; 80053; 80307; 81001; 82150; 82962; 83690; 83735; 83880; 84484; 85025; 87426; 93005; 93306; 96365; 96366; J1815; J2704; J3475; J7030; J7120; Q9966; U0003; U0005; 99285-25; G0378

== ENCOUNTER → 2021-01-18 | Outpatient (CLI) | payer MEDICARE ==
[2021-01-12 23:00] VITALS: BP 173/75
[~2021-01-18] MED LIST changes: +ATOR40TA59 PO; +CHOL10004 PO; +LEVO200T5 PO; +PANT40TA77 PO; +REGADENOSON 0.4 MG/5 ML DISP.SYRIN. IV ONE; +SERT-268 PO; +VIT1CAPS12 PO
--- NOTE | 2021-01-19 11:07 | RAD ---
MR#: [id number] Date of Study: 01/18/2021 Ordering Physician: ELIZABETH SEWELL, Referring Physician: PARTH STEIN Tech: JASON Peralta ARRT (Mary) (N) APPROVED REPORT Test Type: Pharmacological Stress Nurse/Tech: Jody Myers RN Test Indications: CAD Cardiac History: COPD, high cholesterol, HTN, DM Medications: See Electronic Medical Record Medical History: See Electronic Medical Record Resting ECG: SR Resting Heart Rate: 68 bpm Resting Blood Pressure: 185/79mmHg Pretest Chest Pain: None Nurse/Tech Notes Lungs CTA, S1S2 Consent: The procedure was explained to the patient in lay terms. Informed consent was witnessed. Ji eout was entered into [place]. History and Stress Test performed by JASON Peralta ARRT (R) (N) Pharm. Details Pharmacologic stress testing was performed using 0.4mg per 5ml of regadenoson given intravenously ove r 7-10 seconds. Stress Symptoms No chest pain or symptoms. POST EXERCISE Reason for Termination: Infusion complete Max HR: 90 bpm Max Blood Pressure: 174/61mmHg Blood Pressure response to exercise: Normal blood pressure response during stress. Heart Rate response to exercise: normal response Chest Pain: No. Arrhythmia: No. ST Change: No. INTERPRETATION Stress EKG Conclusion: No evidence of stress-induced EKG changes Imaging Protocol IMAGE PROTOCOL: Rest Tc-99m/stress Tc-99m 1 day Rest: Stress: Viability: Radiopharm.Tc99m KuikinhdzZq28j Sestamibi Flpz25iVm 31.2mCi Img Date 01/18/2021 01/18/2021 Inj-Img Lsiv33hck. 60min. Rest Admin Site:IV - Right ForearmAdministrator:JASON Peralta ARRT (R)(N) Stress Admin Site: IV - Right ForearmAdministrator: RT Arcadio (R)(N) STRESS DATA End Diast. Vol.84.0mlAv. Heart Rate67.0bpm End Syst. Vol.11.0mlCO Index BSA0.0L/min Myocardial Ulbm054.0gEject. Ywjvnxbb39.0% Stress Rates Pk. Fill Rate2.53EDV/secLVtime Pk. Fill 132.51msec Pk. Empty Rate3.84ESV/secLVtime Pk. Ybslf128.58msec 1/3 Pk. Fill1.54EDV/sec Stress Scores Regional WT0.00Summed WT0.00 Regional WM0.00Summed WM0.00 The rest and stress images show normal perfusion, normal contraction and thickening. LV Perf. Quant 17 Seg. SSS0.00 17 Seg. SRS0.00 17 Seg. SDS0.00 Stress Defect Extent (% LAD)0.00Rest Defect Extent (% LAD)0.00Rev. Defect Extent (% LAD)0.00 Stress Defect Extent (% LCX) 0.00Rest Defect Extent (% LCX)0.00Rev. Defect Extent (% LCX)0.00 Stress Defect Extent (% RCA)0.00Rest Defect Extent (% RCA)0.00Rev. Defect Extent (% RCA)0.00 Stress Defect Extent (% PARAG)0.00Rest Defect Extent (% PARAG)0.00Rev. Defect Extent (% PARAG)0.00 Other Information Quality:Average Risk Assessment: Low Risk Conclusion 1. No evidence of EKG changes with stress testing. 2. Normal perfusion at stress/rest. 3. Low risk study. 4. EF > 60%. Signed by : Johan Beard, Electronically Approved : 01/19/2021 11:07:08
== END ==
LOC: NM 08:48
PROVIDERS: ATTEND Internal Medicine Cardiovascular Disease
DX: I21.02 ST elevation (STEMI) myocardial infarction involving left anterior descending coronary artery (principal); I10 Essential (primary) hypertension; E11.9 Type 2 diabetes mellitus without complications
CPT/HCPCS: 78452; 93017; A9500; J2785

== ENCOUNTER → 2021-03-08 | Outpatient (CLI) | payer MEDICARE ==
[2021-02-09 14:51] VITALS: BP 157/58
[~2021-03-08] MED LIST changes: -REGADENOSON 0.4 MG/5 ML DISP.SYRIN. IV ONE; +TIZA-75 PO; -TIZA4TAB2 PO
--- NOTE | 2021-03-08 11:40 | RAD ---
EXAM: Left lower extremity venous Doppler. HISTORY: Left lower extremity pain/swelling. COMPARISON: None. FINDINGS: Grayscale and Doppler analysis of the left lower extremity deep venous system was performed with graded compression and augmentation. The common femoral, greater saphenous, superficial femoral , popliteal and calf veins were assessed. There is no evidence of deep venous thrombosis. IMPRESSION: 1. No evidence of deep venous thrombosis. Electronically signed by: Palmer Yancey MD (03/08/2021 11:38 AM) [id number]
== END ==
LOC: US 11:04
PROVIDERS: ATTEND Internal Medicine
DX: M79.605 Pain in left leg (principal); R22.43 Localized swelling, mass and lump, lower limb, bilateral
CPT/HCPCS: 93971